=== PATIENT | female | born 1940 | race Caucasian/White ===

== ENCOUNTER → 2018-02-11 | Outpatient (CLI) | payer OTHER ==
[~2018-02-11] MED LIST: ACCUPRIL40 M1 PO; ACCUPRIL40 MG PO; ACETAMINOPHEN A PO; ALPRAZOLAM0.25 M2 PO; AMBIEN10 MG PO; ASPIRIN ADULT L81 M1 PO; ASPIRIN LOW STR81 M1 PO; ASPIRIN81 M1 PO; BUTRANS10 MCG/HR TD; CALCIUM LACTAT100 MG PO; CARDIZEM CD240 MG PO; CARTIA XT240 MG PO; CEFTIN500 MG PO; CIPRO500 MG PO; CIPROFLOXACIN750 MG PO; DILTIAZEM 24HR120 MG PO; DUONEB 3 MG/3 ML3 M1 NEB; DURICEF500 MG PO; Duragesic 25 M25 MCG TD; HUMALOG100 U/ML SC; HYDR25T PO; HYDROCHLOROTH12.5 M3 PO; HYDROCHLOROTH12.5 MG PO; IMDUR ER30 MG PO; IMDUR30 MG PO; ISOSORBIDE MONO30 MG PO; KEPPRA500 MG PO; LANTUS100 U/ML; LANTUS100 U/ML SC; LASIX20 MG PO; LIPITOR40 MG PO; LISINOPRIL AND1 TA1 PO; LISINOPRIL10 M1 PO; LISINOPRIL5 MG PO; LOPRESSOR25 MG PO; LOPRESSOR50 M1 PO; LOSARTAN POTASS25 M1 PO; MACRODANTIN100 M1 PO; METFORMIN1000 MG PO; METOPROLOL SR100 MG PO; METOPROLOL SUC100 M1 PO; METOPROLOL100 MG PO; MICROZIDE; MUSCLE RUB 10% TP; NEURONTIN100 MG PO; NIASPAN1000 MG PO; NIASPAN500 MG PO; NORCO 325 MG-51 TAB PO; NORCO 5-325 TA1 EACH PO; NOVOLIN R100 U/ML SC; NOVOLOG FL100 UNIT/1 SQ; OSCAL,OYSTER S500 MG PO; OYSTER SHELL1000 MG PO; PLAVIX75 M1 PO; PLAVIX75 MG PO; PRAVACHOL20 MG PO; PREDNISONE10 MG PO; PRINIVIL10 MG PO; PROAIR HFA0.09 MG/AC IH; PROTONIX40 MG PO; QUINAPRIL20 MG PO; QUINAPRIL40 MG PO; SIMVASTATIN20 MG PO; SYMBICORT1 AE1 IH; SYMBICORT1 AER INH; SYNTHROID,LEVO75 MCG PO; SYNTHROID0.075 MG PO; TOPROL XL100 MG PO; TOPROL XL200 MG PO; TOPROL XL50 M1 PO; TUBERSOL1 M1 IC; TUSSI-ORGANID3840 M1 PO; TYLENOL325 M1 PO; TYLENOL650 M1 PO; VIBRA-TAB100 M1 PO; VICODIN 5/500 505 MG PO; VITAMIN D10000 UNIT PO; VITAMIN D50000 I1 PO; VITAMIN D50000 I2 PO; Vicodin 5/325 PO; XANAX0.25 MG PO
--- NOTE | ~2018-02-11 | ST ---
[place], [place] EXERCISE STRESS TEST REPORT NAME: [facility]EN [id number] UNIT #: [id number] ROOM: DOCTOR: CHARITO SANFORD MD BIRTHDATE: [birth year] DOS: 02/11/2018 LEXISCAN STRESS EKG. REFERRING PHYSICIAN: Dr. Reece. INDICATION: Shortness of breath, history of coronary artery disease. FINDINGS: The patient underwent standard protocol Lexiscan stress EKG. The patient's baseline EKG showed normal sinus rhythm, nonspecific ST-T wave change. The patient's baseline heart rate was 90 with a blood pressure 148/76. The patient's peak heart rate was 120 with a blood pressure 180/78. The patient had no chest pain, no EKG changes, no arrhythmias noted. SUMMARY OF FINDINGS: Unremarkable Lexiscan stress EKG. Please see separate report for perfusion scan results. CHARITO SANFORD MD CM:STRESS:EXERCISE STRESS TEST REPORT [id number] CHARITO SANFORD MD
== END | disposition home or self-care (01) ==
LOC: CARD 02:54
DX: R06.02 Shortness of breath (principal); R06.09 Other forms of dyspnea; R53.81 Other malaise; Z95.1 Presence of aortocoronary bypass graft

== ENCOUNTER 2018-03-16 16:37 | Inpatient (IN) | payer OTHER ==
[~2018-03-16] VITALS: Ht 157.4 cm; Wt 76.9 kg
[2018-03-16 16:38] VITALS: BP 144/65
[2018-03-16 17:09] LABS: BILIRUBIN NEGATIVE (NEGATIVE); BLOOD NEGATIVE (NEGATIVE); CLARITY CLEAR (CLEAR); COLOR YELLOW (YELLOW); GLUCOSE NEGATIVE (NEGATIVE); KETONE NEGATIVE (NEGATIVE); LEUKO ESTERASE NEGATIVE (NEGATIVE); NITRITE NEGATIVE (NEGATIVE); PH 5.5 (5.0-9.0); UROBILINOGEN 0.2 E.U./dl (0.2-1.0)
[2018-03-16 17:15] LABS: HEMATOCRIT 40.8 % (37.0-47.0); HEMOGLOBIN 13.2 g/dl (12.0-16.0); MEAN CELL VOLUME 89.3 fl (81.0-99.0); MEAN CORPUSCULAR HGB 28.9 pg (27.0-31.0); MEAN CORPUSCULAR HGB CONC 32.4 g/dl (33.0-37.0); MEAN PLATELET VOLUME 9.1 fl (9.6-12.3); PLATELET COUNT AUTOMATED 319 10*3/uL (130-400); RED BLOOD COUNT 4.57 10*6/uL (4.10-5.10); RED CELL DISTRI WIDTH 13.2 % (0-14.5); WHITE BLOOD COUNT 23.9 10*3/uL (4.8-10.8)
[2018-03-16] MEDS ORDERED: INCRUSE ELLI62.5 MCG INH (17:15)
[2018-03-16] MEDS ORDERED: NOVOLOG10 ML SC (17:16)
[2018-03-16] MEDS ORDERED: MILK OF MA400 MG/51 PO (17:16)
[2018-03-16] MEDS ORDERED: STRESS FORMULA1 EAC4 PO (17:17)
[2018-03-16] MEDS ORDERED: VENTOLIN 02.5 MG/3 M INH (17:18)
[2018-03-16 17:19] LABS: BACTERIA 2+; MUCOUS TRACE; RBC 0-2 rbc/hpf (0-2); WBC 0-2 wbc/hpf (0-5)
[2018-03-16 17:29] LABS: ALBUMIN 3.5 gm/dl (3.1-4.5); CREATININE 1.22 mg/dL (0.55-1.02); POTASSIUM 3.9 mmol/L (3.5-5.1); TOTAL PROTEIN 7.5 gm/dL (6.4-8.2)
[2018-03-16 17:32] LABS: BASOPHILS 1 % (0-1); PLATELET SUFFICIENCY NORMAL (NORMAL); TOTAL CELLS COUNTED 100 #CELLS
[2018-03-16 18:08] VITALS: BP 138/70
[2018-03-16 20:14] VITALS: BP 121/68
[2018-03-16] MEDS ORDERED: BENADRYL ALLERG25 M5 PO (20:24)
[2018-03-16 20:25] VITALS: BP 111/64
[2018-03-16] MEDS ORDERED: BREO ELLIPTA 21 EACH INH (20:25)
[2018-03-16] MEDS ORDERED: DULCOLAX10 M1 R (20:26)
[2018-03-16] MEDS ORDERED: DUONEB 3 MG/3 ML3 M1 INH (20:27)
[2018-03-16] MEDS ORDERED: LANTUS SOL100 UNIT/1 SQ (20:29)
[2018-03-16] MEDS ORDERED: PROVENTIL HFA6.7 GM INH (20:32)
[2018-03-16] MEDS ORDERED: VITAMIN C500 M8 PO (20:32)
[2018-03-17] VITALS: BP 121/64
[2018-03-17 06:17] LABS: BASO # 0.1 10*3/uL (0.0-0.1); BASO % 0.3 % (0.0-1.0); EOS # 0.2 10*3/uL (0.0-0.4); EOS % 1.2 % (1.0-4.0); LYMPH # 1.6 10*3/uL (1.3-4.4); LYMPH % 8.5 % (27.0-41.0); MEAN CELL VOLUME 91.2 fl (81.0-99.0); MEAN CORPUSCULAR HGB CONC 31.8 g/dl (33.0-37.0); MEAN PLATELET VOLUME 9.5 fl (9.6-12.3); MONO # 1.4 10*3/uL (0.1-1.0); MONO % 7.5 % (3.0-9.0); NEUT # 15.8 10*3/uL (2.3-7.9); PLATELET COUNT AUTOMATED 261 10*3/uL (130-400); RED BLOOD COUNT 3.76 10*6/uL (4.10-5.10); RED CELL DISTRI WIDTH 13.2 % (0-14.5); WHITE BLOOD COUNT 19.2 10*3/uL (4.8-10.8)
[2018-03-17 06:27] LABS: HEMATOCRIT 34.3 % (37.0-47.0); HEMOGLOBIN 10.9 g/dl (12.0-16.0)
[2018-03-17 06:30] LABS: BUN 12 mg/dl (7-24); CHLORIDE 107 mmol/L (98-107); CHOLESTEROL 96 mg/dL (<200); CREATININE 0.89 mg/dL (0.55-1.02); PHOSPHOROUS 2.8 mg/dL (2.5-4.9); POTASSIUM 3.9 mmol/L (3.5-5.1); SODIUM 142 mmol/L (136-145); TRIGLYCERIDES 75 mg/dl (<150); VLDL CHOLESTEROL 15 mg/dL (6-40)
[2018-03-17 06:39] LABS: FREE T4 1.07 ng/dl (0.76-1.46); HDL CHOLESTEROL 59 mg/dl (40-60); LDL CHOLESTEROL 22 mg/dL (9-159); THYROID STIM HORMONE (HS) 0.178 uIU/ml (0.358-4.75)
[2018-03-17 07:21] LABS: VITAMIN D, 25-HYDROXY 34.8 ng/mL (30-100)
[2018-03-17 08:00] VITALS: BP 117/61
[2018-03-17 12:00] VITALS: BP 126/61
[2018-03-17 16:00] VITALS: BP 116/73
[2018-03-17 20:26] VITALS: BP 137/69
[2018-03-18 00:15] VITALS: BP 124/67
[2018-03-18 06:24] LABS: BASO # 0.1 10*3/uL (0.0-0.1); BASO % 0.5 % (0.0-1.0); EOS # 0.5 10*3/uL (0.0-0.4); EOS % 3.8 % (1.0-4.0); HEMATOCRIT 34.3 % (37.0-47.0); HEMOGLOBIN 11.1 g/dl (12.0-16.0); LYMPH # 2.4 10*3/uL (1.3-4.4); LYMPH % 19.9 % (27.0-41.0); MEAN CELL VOLUME 90.7 fl (81.0-99.0); MEAN CORPUSCULAR HGB 29.4 pg (27.0-31.0); MEAN CORPUSCULAR HGB CONC 32.4 g/dl (33.0-37.0); MEAN PLATELET VOLUME 9.4 fl (9.6-12.3); MONO # 1.1 10*3/uL (0.1-1.0); MONO % 9.1 % (3.0-9.0); NEUT % 66.2 % (47.0-73.0); PLATELET COUNT AUTOMATED 278 10*3/uL (130-400); RED BLOOD COUNT 3.78 10*6/uL (4.10-5.10); RED CELL DISTRI WIDTH 13.2 % (0-14.5); WHITE BLOOD COUNT 12.1 10*3/uL (4.8-10.8)
[2018-03-18 06:52] LABS: BUN 14 mg/dl (7-24); CHLORIDE 108 mmol/L (98-107); CREATININE 0.99 mg/dL (0.55-1.02); POTASSIUM 3.6 mmol/L (3.5-5.1); SODIUM 142 mmol/L (136-145)
[2018-03-18 08:00] VITALS: BP 137/66
[2018-03-18 12:00] VITALS: BP 152/67
[2018-03-18 16:00] VITALS: BP 151/66
[2018-03-18 20:00] VITALS: BP 135/87
[2018-03-19] VITALS: BP 144/67
[2018-03-19 06:35] LABS: BASO # 0.1 10*3/uL (0.0-0.1); BASO % 0.7 % (0.0-1.0); EOS # 0.6 10*3/uL (0.0-0.4); EOS % 5.7 % (1.0-4.0); HEMATOCRIT 34.9 % (37.0-47.0); HEMOGLOBIN 11.1 g/dl (12.0-16.0); LYMPH # 2.1 10*3/uL (1.3-4.4); LYMPH % 20.6 % (27.0-41.0); MEAN CELL VOLUME 89.9 fl (81.0-99.0); MEAN CORPUSCULAR HGB 28.6 pg (27.0-31.0); MEAN CORPUSCULAR HGB CONC 31.8 g/dl (33.0-37.0); MEAN PLATELET VOLUME 9.5 fl (9.6-12.3); MONO # 0.9 10*3/uL (0.1-1.0); MONO % 8.7 % (3.0-9.0); NEUT # 6.5 10*3/uL (2.3-7.9); NEUT % 63.9 % (47.0-73.0); PLATELET COUNT AUTOMATED 288 10*3/uL (130-400); RED BLOOD COUNT 3.88 10*6/uL (4.10-5.10); RED CELL DISTRI WIDTH 13.2 % (0-14.5); WHITE BLOOD COUNT 10.1 10*3/uL (4.8-10.8)
[2018-03-19 07:06] LABS: CREATININE 1.13 mg/dL (0.55-1.02); POTASSIUM 3.7 mmol/L (3.5-5.1)
[2018-03-19 08:00] VITALS: BP 133/80
[2018-03-19 12:00] VITALS: BP 135/52
[2018-03-19 16:00] VITALS: BP 130/74
[2018-03-19 20:00] VITALS: BP 139/68
[2018-03-20 06:33] LABS: BASO # 0.1 10*3/uL (0.0-0.1); BASO % 0.5 % (0.0-1.0); EOS # 0.4 10*3/uL (0.0-0.4); EOS % 3.7 % (1.0-4.0); HEMATOCRIT 33.8 % (37.0-47.0); HEMOGLOBIN 10.7 g/dl (12.0-16.0); LYMPH # 1.7 10*3/uL (1.3-4.4); MEAN CELL VOLUME 90.6 fl (81.0-99.0); MEAN CORPUSCULAR HGB 28.7 pg (27.0-31.0); MEAN CORPUSCULAR HGB CONC 31.7 g/dl (33.0-37.0); MEAN PLATELET VOLUME 9.3 fl (9.6-12.3); MONO # 0.8 10*3/uL (0.1-1.0); MONO % 6.9 % (3.0-9.0); NEUT # 8.5 10*3/uL (2.3-7.9); NEUT % 73.1 % (47.0-73.0); PLATELET COUNT AUTOMATED 296 10*3/uL (130-400); RED BLOOD COUNT 3.73 10*6/uL (4.10-5.10); RED CELL DISTRI WIDTH 13.2 % (0-14.5); WHITE BLOOD COUNT 11.6 10*3/uL (4.8-10.8)
[2018-03-20 06:59] LABS: BUN 15 mg/dl (7-24); CHLORIDE 107 mmol/L (98-107); CREATININE 0.99 mg/dL (0.55-1.02); POTASSIUM 3.6 mmol/L (3.5-5.1); SODIUM 144 mmol/L (136-145)
[2018-03-20 08:25] VITALS: BP 139/68
[2018-03-20 12:17] VITALS: BP 148/73
[2018-03-20 16:00] VITALS: BP 124/52
[2018-03-20 20:00] VITALS: BP 131/73
[2018-03-21] VITALS: BP 127/68
[2018-03-21 08:00] VITALS: BP 150/79
[2018-03-21 09:50] LABS: BASO # 0.1 10*3/uL (0.0-0.1); BASO % 0.7 % (0.0-1.0); EOS # 0.4 10*3/uL (0.0-0.4); EOS % 4.9 % (1.0-4.0); HEMOGLOBIN 11.8 g/dl (12.0-16.0); LYMPH # 2.1 10*3/uL (1.3-4.4); LYMPH % 23.1 % (27.0-41.0); MEAN CORPUSCULAR HGB 28.7 pg (27.0-31.0); MEAN CORPUSCULAR HGB CONC 31.9 g/dl (33.0-37.0); MEAN PLATELET VOLUME 9.1 fl (9.6-12.3); MONO # 0.8 10*3/uL (0.1-1.0); MONO % 9.1 % (3.0-9.0); NEUT # 5.6 10*3/uL (2.3-7.9); NEUT % 61.6 % (47.0-73.0); PLATELET COUNT AUTOMATED 331 10*3/uL (130-400); RED BLOOD COUNT 4.11 10*6/uL (4.10-5.10); RED CELL DISTRI WIDTH 13.4 % (0-14.5)
[2018-03-21 10:02] LABS: BUN 13 mg/dl (7-24); CHLORIDE 106 mmol/L (98-107); CREATININE 0.93 mg/dL (0.55-1.02); POTASSIUM 3.5 mmol/L (3.5-5.1); SODIUM 143 mmol/L (136-145)
[2018-03-21 12:00] VITALS: BP 121/66; BP 134/63
[2018-03-21 16:00] VITALS: BP 109/54
[2018-03-21 20:00] VITALS: BP 125/56
[2018-03-22 00:22] VITALS: BP 130/63
[2018-03-22 08:00] VITALS: BP 135/66
[2018-03-22] MEDS ORDERED: LEVAQUIN750 M1 PO (13:14)
[2018-03-22] MEDS ORDERED: KEPPRA500 MG PO (13:22)
== END 2018-03-22 15:22 | disposition other institution (70) | DRG 871 ==
LOC: ED 16:37 → 5E 18:29 → EDHOLD 18:29 → 5E 18:41
PROVIDERS: Family Medicine; Internal Medicine; Physician Assistant; Student in an Organized Health Care Education/Training Program
DX: A41.9 Sepsis, unspecified organism (principal); N17.0 Acute kidney failure with tubular necrosis; J18.9 Pneumonia, unspecified organism; N18.3 Chronic kidney disease, stage 3 (moderate); E11.22 Type 2 diabetes mellitus with diabetic chronic kidney disease; E11.65 Type 2 diabetes mellitus with hyperglycemia; G40.A09 Absence epileptic syndrome, not intractable, without status epilepticus; N39.0 Urinary tract infection, site not specified; E78.5 Hyperlipidemia, unspecified; I25.10 Atherosclerotic heart disease of native coronary artery without angina pectoris; I12.9 Hypertensive chronic kidney disease with stage 1 through stage 4 chronic kidney disease, or unspecified chronic kidney disease; Z66 Do not resuscitate; Z51.5 Encounter for palliative care; R26.2 Difficulty in walking, not elsewhere classified; M54.41 Lumbago with sciatica, right side; D72.810 Lymphocytopenia; J45.909 Unspecified asthma, uncomplicated; W18.39XA Other fall on same level, initial encounter; Y93.89 Activity, other specified; Y92.231 Patient bathroom in hospital as the place of occurrence of the external cause; Y99.8 Other external cause status; Z99.3 Dependence on wheelchair; Z79.4 Long term (current) use of insulin; Z79.899 Other long term (current) drug therapy; Z95.1 Presence of aortocoronary bypass graft; Z90.49 Acquired absence of other specified parts of digestive tract; Z86.73 Personal history of transient ischemic attack (TIA), and cerebral infarction without residual deficits; Z90.710 Acquired absence of both cervix and uterus; Z87.891 Personal history of nicotine dependence; Z98.1 Arthrodesis status; Z88.0 Allergy status to penicillin; Z88.2 Allergy status to sulfonamides; Z91.040 Latex allergy status; Z82.49 Family history of ischemic heart disease and other diseases of the circulatory system; Z80.8 Family history of malignant neoplasm of other organs or systems; Z83.3 Family history of diabetes mellitus

== ENCOUNTER 2018-04-05 16:06 | Emergency (ER) | payer OTHER ==
[~2018-04-05] VITALS: Wt 90.7 kg
[~2018-04-05 16:06] MED LIST changes: +BENADRYL ALLERG25 M5 PO; +BREO ELLIPTA 21 EACH INH; +DULCOLAX10 M1 R; +DUONEB 3 MG/3 ML3 M1 INH; +INCRUSE ELLI62.5 MCG INH; +LANTUS SOL100 UNIT/1 SQ; +LEVAQUIN750 M1 PO; +MILK OF MA400 MG/51 PO; +NOVOLOG10 ML SC; +PROVENTIL HFA6.7 GM INH; +STRESS FORMULA1 EAC4 PO; +VENTOLIN 02.5 MG/3 M INH; +VITAMIN C500 M8 PO
[2018-04-05 16:07] VITALS: BP 141/75
[2018-04-05 16:46] LABS: BASO # 0.1 10*3/uL (0.0-0.1); BASO % 0.9 % (0.0-1.0); EOS # 0.4 10*3/uL (0.0-0.4); HEMATOCRIT 36.5 % (37.0-47.0); HEMOGLOBIN 11.7 g/dl (12.0-16.0); LYMPH # 2.3 10*3/uL (1.3-4.4); LYMPH % 19.6 % (27.0-41.0); MEAN CELL VOLUME 88.6 fl (81.0-99.0); MEAN CORPUSCULAR HGB 28.4 pg (27.0-31.0); MEAN CORPUSCULAR HGB CONC 32.1 g/dl (33.0-37.0); MEAN PLATELET VOLUME 8.6 fl (9.6-12.3); MONO % 8.1 % (3.0-9.0); PLATELET COUNT AUTOMATED 392 10*3/uL (130-400); RED BLOOD COUNT 4.12 10*6/uL (4.10-5.10); RED CELL DISTRI WIDTH 13.3 % (0-14.5); WHITE BLOOD COUNT 11.7 10*3/uL (4.8-10.8)
[2018-04-05 16:47] LABS: BILIRUBIN NEGATIVE (NEGATIVE); BLOOD NEGATIVE (NEGATIVE); CLARITY CLEAR (CLEAR); COLOR YELLOW (YELLOW); GLUCOSE NEGATIVE (NEGATIVE); KETONE NEGATIVE (NEGATIVE); LEUKO ESTERASE NEGATIVE (NEGATIVE); NITRITE NEGATIVE (NEGATIVE); PH 5.5 (5.0-9.0); SPECIFIC GRAVITY <= 1.005 (1.005-1.030); UROBILINOGEN 0.2 E.U./dl (0.2-1.0)
[2018-04-05 17:07] LABS: CREATININE 1.07 mg/dL (0.55-1.02)
[2018-04-05 17:12] LABS: POTASSIUM 3.7 mmol/L (3.5-5.1)
[2018-04-05 17:32] LABS: BACTERIA TRACE; RBC 0-2 rbc/hpf (0-2); WBC 0-2 wbc/hpf (0-5)
== END 2018-04-05 18:50 ==
LOC: ED 16:06
PROVIDERS: Emergency Medicine
DX: G89.29 Other chronic pain (principal); I12.9 Hypertensive chronic kidney disease with stage 1 through stage 4 chronic kidney disease, or unspecified chronic kidney disease; E11.22 Type 2 diabetes mellitus with diabetic chronic kidney disease; N18.3 Chronic kidney disease, stage 3 (moderate); J45.909 Unspecified asthma, uncomplicated; E78.5 Hyperlipidemia, unspecified; Z98.890 Other specified postprocedural states; Z90.710 Acquired absence of both cervix and uterus; Z87.891 Personal history of nicotine dependence; Z95.1 Presence of aortocoronary bypass graft; Z79.899 Other long term (current) drug therapy; Z79.4 Long term (current) use of insulin; Z88.0 Allergy status to penicillin; Z88.2 Allergy status to sulfonamides; Z91.040 Latex allergy status

== ENCOUNTER 2018-04-19 16:36 | Inpatient (IN) | payer OTHER ==
[2018-04-19] VITALS (8 sets, daily range): BP systolic 142–167; BP diastolic 65–79
[~2018-04-19] VITALS: Ht 157.4 cm; Wt 70.0 kg
[2018-04-19 17:31] LABS: BASO # 0.1 10*3/uL (0.0-0.1); BASO % 0.5 % (0.0-1.0); EOS # 0.3 10*3/uL (0.0-0.4); HEMATOCRIT 40.6 % (37.0-47.0); HEMOGLOBIN 12.8 g/dl (12.0-16.0); LYMPH # 2.9 10*3/uL (1.3-4.4); LYMPH % 17.8 % (27.0-41.0); MEAN CELL VOLUME 89.4 fl (81.0-99.0); MEAN CORPUSCULAR HGB 28.2 pg (27.0-31.0); MEAN CORPUSCULAR HGB CONC 31.5 g/dl (33.0-37.0); MEAN PLATELET VOLUME 9.2 fl (9.6-12.3); MONO # 1.1 10*3/uL (0.1-1.0); NEUT # 11.6 10*3/uL (2.3-7.9); NEUT % 72.1 % (47.0-73.0); PLATELET COUNT AUTOMATED 315 10*3/uL (130-400); RED BLOOD COUNT 4.54 10*6/uL (4.10-5.10); RED CELL DISTRI WIDTH 13.2 % (0-14.5); WHITE BLOOD COUNT 16.2 10*3/uL (4.8-10.8)
[2018-04-19 17:39] LABS: ACT PARTIAL THROMBO TIME 25.6 SECONDS (20.8-31.5); INTERNATIONAL NORM RATIO 0.9 (2.0-3.5)
[2018-04-19 17:48] LABS: ALBUMIN 3.2 gm/dl (3.1-4.5); CREATININE 1.18 mg/dL (0.55-1.02); POTASSIUM 3.5 mmol/L (3.5-5.1); TOTAL PROTEIN 6.9 gm/dL (6.4-8.2); TROPONIN I 0.034 ng/ml (<0.045)
[2018-04-19 18:38] LABS: BILIRUBIN NEGATIVE (NEGATIVE); BLOOD 1+ (NEGATIVE); CLARITY CLOUDY (CLEAR); COLOR YELLOW (YELLOW); GLUCOSE NEGATIVE (NEGATIVE); KETONE NEGATIVE (NEGATIVE); LEUKO ESTERASE 3+ (NEGATIVE); NITRITE NEGATIVE (NEGATIVE); UROBILINOGEN 0.2 E.U./dl (0.2-1.0)
[2018-04-19 18:42] LABS: BACTERIA 1+; WBC TNTC wbc/hpf (0-5)
[2018-04-19] MEDS ORDERED: DUONEB 3 MG/3 ML3 M1 INH (21:03)
[2018-04-19] MEDS ORDERED: GLUCAGON EMERGEN1 M1 IJ (21:10)
[2018-04-19] MEDS ORDERED: GLUCOSE33 GM PO (21:12)
[2018-04-19] MEDS ORDERED: LANTUS SOL100 UNIT/1 SQ (21:15)
[2018-04-19] MEDS ORDERED: LOSARTAN POTASS50 M1 PO (21:18)
[2018-04-19] MEDS ORDERED: HYDROCODONE-AC1 EAC1 PO (21:20)
[2018-04-19] MEDS ORDERED: PREDNISONE10 MG PO (21:28)
[2018-04-20] VITALS: BP 150/65
[2018-04-20 06:38] LABS: BUN 16 mg/dl (7-24); CREATININE 0.93 mg/dL (0.55-1.02); PHOSPHOROUS 2.6 mg/dL (2.5-4.9); SGOT/AST 16 IU/L (3-35); SGPT/ALT 29 U/L (12-78)
[2018-04-20 06:40] LABS: ALKALINE PHOSPHATASE 194 U/L (45-117); BASO % 0.3 % (0.0-1.0); EOS % 0.1 % (1.0-4.0); HEMATOCRIT 41.6 % (37.0-47.0); HEMOGLOBIN 13.1 g/dl (12.0-16.0); LYMPH # 1.1 10*3/uL (1.3-4.4); LYMPH % 9.5 % (27.0-41.0); MEAN CELL VOLUME 87.9 fl (81.0-99.0); MEAN CORPUSCULAR HGB 27.7 pg (27.0-31.0); MEAN CORPUSCULAR HGB CONC 31.5 g/dl (33.0-37.0); MEAN PLATELET VOLUME 9.4 fl (9.6-12.3); MONO # 0.2 10*3/uL (0.1-1.0); MONO % 1.4 % (3.0-9.0); NEUT % 88.2 % (47.0-73.0); PLATELET COUNT AUTOMATED 324 10*3/uL (130-400); RED BLOOD COUNT 4.73 10*6/uL (4.10-5.10); TOTAL PROTEIN 6.8 gm/dL (6.4-8.2); WHITE BLOOD COUNT 11.3 10*3/uL (4.8-10.8)
[2018-04-20 06:45] LABS: CHLORIDE 109 mmol/L (98-107); POTASSIUM 3.9 mmol/L (3.5-5.1); SODIUM 141 mmol/L (136-145)
[2018-04-20 06:48] LABS: THYROID STIM HORMONE (HS) 0.484 uIU/ml (0.358-4.75)
[2018-04-20 08:00] VITALS: BP 157/78
[2018-04-20 12:00] VITALS: BP 153/79
[2018-04-20 16:00] VITALS: BP 126/61
[2018-04-20 20:00] VITALS: BP 143/67
[2018-04-21] VITALS: BP 142/67
[2018-04-21 07:12] LABS: BASO # 0.1 10*3/uL (0.0-0.1); BASO % 0.5 % (0.0-1.0); EOS # 0.5 10*3/uL (0.0-0.4); EOS % 4.2 % (1.0-4.0); HEMATOCRIT 38.3 % (37.0-47.0); HEMOGLOBIN 12.1 g/dl (12.0-16.0); LYMPH # 2.7 10*3/uL (1.3-4.4); LYMPH % 24.8 % (27.0-41.0); MEAN CELL VOLUME 88.5 fl (81.0-99.0); MEAN CORPUSCULAR HGB 27.9 pg (27.0-31.0); MEAN CORPUSCULAR HGB CONC 31.6 g/dl (33.0-37.0); MEAN PLATELET VOLUME 9.4 fl (9.6-12.3); MONO # 0.7 10*3/uL (0.1-1.0); MONO % 6.5 % (3.0-9.0); NEUT % 63.4 % (47.0-73.0); PLATELET COUNT AUTOMATED 312 10*3/uL (130-400); RED BLOOD COUNT 4.33 10*6/uL (4.10-5.10); RED CELL DISTRI WIDTH 13.2 % (0-14.5); WHITE BLOOD COUNT 11.1 10*3/uL (4.8-10.8)
[2018-04-21 07:20] LABS: BUN 14 mg/dl (7-24); CHLORIDE 107 mmol/L (98-107); CREATININE 0.95 mg/dL (0.55-1.02); SODIUM 144 mmol/L (136-145)
[2018-04-21 08:00] VITALS: BP 135/65
[2018-04-21 12:00] VITALS: BP 143/67
[2018-04-21 16:00] VITALS: BP 120/53
[2018-04-21 20:00] VITALS: BP 120/53
[2018-04-22] VITALS: BP 146/76
[2018-04-22 07:23] LABS: BASO # 0.1 10*3/uL (0.0-0.1); BASO % 0.4 % (0.0-1.0); EOS # 0.2 10*3/uL (0.0-0.4); EOS % 1.6 % (1.0-4.0); HEMATOCRIT 42.7 % (37.0-47.0); HEMOGLOBIN 13.2 g/dl (12.0-16.0); LYMPH # 2.1 10*3/uL (1.3-4.4); LYMPH % 14.3 % (27.0-41.0); MEAN CORPUSCULAR HGB 28.3 pg (27.0-31.0); MEAN CORPUSCULAR HGB CONC 30.9 g/dl (33.0-37.0); MEAN PLATELET VOLUME 9.6 fl (9.6-12.3); MONO % 6.8 % (3.0-9.0); PLATELET COUNT AUTOMATED 309 10*3/uL (130-400); RED BLOOD COUNT 4.66 10*6/uL (4.10-5.10); RED CELL DISTRI WIDTH 13.6 % (0-14.5); WHITE BLOOD COUNT 14.4 10*3/uL (4.8-10.8)
[2018-04-22 07:25] LABS: MEAN CELL VOLUME 91.5 fl (81.0-99.0)
[2018-04-22 07:48] LABS: BUN 12 mg/dl (7-24); CHLORIDE 105 mmol/L (98-107); CREATININE 1.01 mg/dL (0.55-1.02); POTASSIUM 3.6 mmol/L (3.5-5.1); SODIUM 142 mmol/L (136-145)
[2018-04-22 08:00] VITALS: BP 143/73
[2018-04-22 12:00] VITALS: BP 94/73
[2018-04-22] MEDS ORDERED: KEFLEX500 M1 PO (12:27)
[2018-04-22] MEDS ORDERED: HYDROCODONE-AC1 EAC1 PO (12:27)
[2018-04-22] MEDS ORDERED: Duragesic 25 M25 MCG TD (12:27)
[2018-04-22] MEDS ORDERED: DILTIAZEM HYDR180 M2 PO (12:27)
[2018-04-22] MEDS ORDERED: Lantus SC ×2 (12:27)
[2018-04-22] MEDS ORDERED: ALPRAZOLAM0.25 M2 PO (12:27)
[2018-04-22] MEDS ORDERED: VITAMIN D-32000 UNIT PO (12:27)
== END 2018-04-22 14:05 | disposition other institution (70) | DRG 689 ==
LOC: ED 16:36 → 5E 19:10 → EDHOLD 19:10 → 5E 19:52
PROVIDERS: Emergency Medicine; Family Medicine; Internal Medicine Hospice and Palliative Medicine
DX: N39.0 Urinary tract infection, site not specified (principal); G93.41 Metabolic encephalopathy; E87.2 Acidosis; E11.42 Type 2 diabetes mellitus with diabetic polyneuropathy; E11.22 Type 2 diabetes mellitus with diabetic chronic kidney disease; E44.1 Mild protein-calorie malnutrition; Z66 Do not resuscitate; Z51.5 Encounter for palliative care; B96.4 Proteus (mirabilis) (morganii) as the cause of diseases classified elsewhere; E11.65 Type 2 diabetes mellitus with hyperglycemia; E86.0 Dehydration; Z79.4 Long term (current) use of insulin; N18.3 Chronic kidney disease, stage 3 (moderate); E78.5 Hyperlipidemia, unspecified; I12.9 Hypertensive chronic kidney disease with stage 1 through stage 4 chronic kidney disease, or unspecified chronic kidney disease; Z96.642 Presence of left artificial hip joint; I25.10 Atherosclerotic heart disease of native coronary artery without angina pectoris; L80 Vitiligo; J45.20 Mild intermittent asthma, uncomplicated; M54.42 Lumbago with sciatica, left side; M54.41 Lumbago with sciatica, right side; G40.909 Epilepsy, unspecified, not intractable, without status epilepticus; E55.9 Vitamin D deficiency, unspecified; F41.1 Generalized anxiety disorder; Z88.0 Allergy status to penicillin; Z88.2 Allergy status to sulfonamides; Z91.040 Latex allergy status; Z79.899 Other long term (current) drug therapy; Z86.73 Personal history of transient ischemic attack (TIA), and cerebral infarction without residual deficits; Z90.710 Acquired absence of both cervix and uterus; Z95.1 Presence of aortocoronary bypass graft; Z83.3 Family history of diabetes mellitus; Z82.49 Family history of ischemic heart disease and other diseases of the circulatory system; Z80.9 Family history of malignant neoplasm, unspecified; Z68.28 Body mass index [BMI] 28.0-28.9, adult

== ENCOUNTER 2018-06-22 09:38 | Inpatient (IN) | payer OTHER ==
[~2018-06-22] VITALS: Ht 157.5 cm; Wt 63.5 kg
--- NOTE | ~2018-06-22 | PR ---
[place], [place] PROGRESS NOTE NAME: HERIBERTO CHRISTENSEN UNIT #: [id number] ROOM: 409 DOCTOR: DENNIS SRIVASTAVA MD,JORGE BIRTHDATE: [birth year] DOS: 06/27/2018 SUBJECTIVE: She was noted n.p.o. for bronchoscopy. The patient has been comfortably resting on the bed. Denies symptoms of chest pain. She continued symptoms of cough, which were noted severe and remains nonproductive. Symptoms of chest pain. Denies symptoms of hemoptysis. The patient denies edema or pain in lower extremity. Denies symptoms of headache. Remaining systems were reviewed. They were noted all negative. She was n.p.o. past midnight and bronchoscopy that was planned to be done today. OBJECTIVE: VITAL SIGNS: Which has been recorded shows normal temperature, respiratory rate 20, heart rate 89, blood pressure 165/80, 152/100. Pulse oxygen saturation of the patient recorded as 97% at rest on room air. HEENT: Examination shows head was atraumatic. Eyes nonicterus. NECK: Supple. CARDIOVASCULAR: S1, S2 is audible. LUNGS: The patient was noted with decreased breath sounds in the lungs bilaterally with expiratory wheezing. ABDOMEN: Soft, nontender. Bowel sounds present. EXTREMITIES patient was noted without any edema. MUSCULOSKELETAL: Noted without any acute deformities. CENTRAL NERVOUS SYSTEM: The patient's cranial nerves 2-12 intact. SKIN: Visible skin without lesions or rashes. LABORATORY DATA: BMP this morning, glucose 120, BUN and creatinine were normal. PT and PTT yesterday and platelet function assay was completed yesterday and was noted as normal. IMPRESSION: 1. The patient with ongoing acute exacerbation of bronchial asthma and possible COPD disease and acute bronchitis, persistent respiratory symptoms, not resolving. 2. The patient with maximum medical therapy at the present time. The patient was also continued. PLAN OF MANAGEMENT: Procedure is fibrobronchoscopy is planned for this patient to be done today. After bronchoscopy any modification treatment, needed will be done accordingly. The dose of corticosteroids will be gradually reduced. Supportive care, other therapy, plan of management and other care plan and treatments. [place], [place] PROGRESS NOTE NAME: HERIBERTO CHRISTENSEN UNIT #: [id number] ROOM: 409 DOCTOR: JORGE ALFORD MD BIRTHDATE: [birth year] JORGE COLLINS MD CM:PNTRANS [id number] JORGE SRIVASTAVA MD 07/04/18 0934 interface
--- NOTE | ~2018-06-22 | CON ---
[place], [place] REPORT OF CONSULTATION NAME: HERIBERTO CHRISTENSEN UNIT #: [id number] ROOM: 409 DOCTOR: DENNIS SRIVASTAVA MDJORGE BIRTHDATE: [birth year] DOS: 06/26/2018 REASON FOR CONSULTATION: Consultation requested by the hospitalist service for nonresolving COPD. HISTORY OF PRESENT ILLNESS: A 77-year-old female with past history of COPD. The patient currently is a resident of a nursing facility. The patient has been brought to the hospital. The patient has been noted with symptoms of general weakness, fatigue with increased cough and chest congestion with wheezing as well. She has been also reported with symptoms of some confusion as well. She stays at the [facility]. She has been brought to the hospital for further medical management. REVIEW OF SYSTEMS: Reviewed as follows: CONSTITUTIONAL: The patient fatigued and tired reported. EYES: Denies burning, redness, or tenderness. EARS, NOSE, AND THROAT: Denies sore throat, hoarseness, otalgia, postnasal drainage. CARDIOVASCULAR: Denies angina pain, edema of the lower extremities. GASTROINTESTINAL: No dysphagia, nausea, vomiting, diarrhea, abdominal pain, hematemesis, melena, or hematochezia. GENITOURINARY: Dysuria, suprapubic pain, or hematuria. MUSCULOSKELETAL: No acute joint pain, redness, tenderness. CENTRAL NERVOUS SYSTEM: The inability to walk from past hip surgery, at this time with decreased mobility. SKIN: No abnormal lesions or rashes. Remaining systems were reviewed. They were noted all negative. PAST MEDICAL HISTORY: 1. Longstanding bronchial asthma, severity unknown. 2. History of absence seizures. 3. General anxiety disorder. 4. Chronic kidney disease, stage 3. 5. Past history of stroke. 6. Hyperlipidemia. 7. Essential hypertension. 8. Peripheral neuropathy. 9. Type 2 diabetes mellitus. 10. The patient also had a history of hypothyroidism. PAST SURGICAL HISTORY: 1. Carotid endarterectomy. 2. Colectomy noncancerous. 3. Knee surgery. 4. Hysterectomy. 5. Arthroplasty of the left hip. 6. Breast biopsy, which was benign. 7. Coronary artery bypass grafting. [place], [place] REPORT OF CONSULTATION NAME: HERIBERTO CHRISTENSEN UNIT #: [id number] ROOM: [facility] DOCTOR: DENNIS SRIVASTAVA MD,JORGE BIRTHDATE: [birth year] SOCIAL HISTORY: The patient is currently , lives at home, has 5 children. Tobacco use was noted as teenager and smoked a pack of cigarettes per day until 40 years ago. FAMILY HISTORY: The patient's father of cancer. Mother from unknown medical illnesses. MEDICATIONS: At nursing facility noted use of Proventil HFA, Xanax, vitamin C, Lipitor, vitamin D, Plavix, Benadryl, fentanyl, Flonase, Breo Ellipta, Lasix, sliding insulin coverage, Keppra, loratadine, levothyroxine, multivitamin, Incruse Ellipta. DRUG ALLERGY HISTORY: The patient noted allergies: 1. PENICILLIN. 2. SULFA DRUGS. PHYSICAL EXAMINATION: GENERAL: A 77-year-old female patient currently sitting on the chair without any acute distress. Height of 5 feet 2 inches, weight 140 pounds, BMI 25. VITAL SIGNS: Showed normal temperature, respiratory rate of 18-20, heart rate of 94, blood pressure is 145/70 to 154/78. Pulse oxygen saturation on room air 99% saturation. HEENT: Head was atraumatic. Eyes nonicterus. NECK: Supple. CARDIOVASCULAR: S1, S2 audible. LUNGS: Noted with decreased breath sounds in the lungs were noted bilaterally. Expiratory wheezing. There were no crackles. ABDOMEN: Flat, soft, nontender. EXTREMITIES: Without edema with skin lesions or rashes. CENTRAL NERVOUS SYSTEM: Nonfocal. MUSCULOSKELETAL: No acute deformities. LABORATORY DATA: CBC done this patient on 06/22/2018 on admission, WBC 12.2, remaining CBC normal. PT/PTT on 06/22/2018 normal. Lactic acid 2.2 on admission. CMP of the patient 81, BUN 21, creatinine 1.39, glucose 241, potassium 3.4 on admission. The BMP of patient this morning, glucose 247, BUN and creatinine were normal, potassium 3.3. CBC of the patient WBC count 13.0, hemoglobin 10.6, hematocrit 33.0. Platelet count normal. Blood cultures, no bacterial growth was noted. Review of the radiology data pertinent. Chest x-ray was done on admission one view, in the Emergency 06/22/2018, the patient noted changes of hyperinflation. There were no acute pulmonary infiltration. IMPRESSION: The patient was currently admitted to the hospital noted with acute onset of exacerbation of bronchial asthma, possible COPD combination patient with acute bronchitis, started with upper respiratory tract infection, now resolving. Persistent symptoms of coughing, wheezing noted, not responding to treatment for the past 4 days of treatment with corticosteroids, bronchodilators, and other medications. PLAN OF MANAGEMENT: The patient dose of Solu-Medrol will be decreased to 40 mg [place], [place] REPORT OF CONSULTATION NAME: HERIBERTO CHRISTENSEN UNIT #: [id number] ROOM: 409 DOCTOR: JORGE ALFORD MD BIRTHDATE: [birth year] t.i.d. from 60 mg t.i.d. since remains on same corticosteroids without any further changes. Therapeutic bronchoscopy was considered plan to be done tomorrow morning after description of the risk and benefits, the patient accepted the procedure. N.p.o. past midnight status will be achieved. Continue on previous therapy without any additional change in treatment will be recommended at this time. Usual care. Any changes further in the treatment if necessary will be ordered accordingly. All other treatment changes to be made as well as the patient's illness progresses. Thanks for allowing me to participate in the care of this patient. JORGE COLLINS MD CM:CONSTR:REPORT OF CONSULTATION 1730 07/04/18 0935 interface
--- NOTE | ~2018-06-22 | EKG ---
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
--- NOTE | ~2018-06-22 | PROC NOTE ---
[place], [place] PROCEDURE NOTE NAME: HERIBERTO CHRISTENSEN UNIT #: [id number] ROOM: 409 DOCTOR: DENNIS SRIVASTAVA MD,JORGE BIRTHDATE: [birth year] DOS: 06/27/2018 PREOPERATIVE DIAGNOSES: Severe nonresolving cough with active wheezing. POSTOPERATIVE DIAGNOSES: Impaction of the mucus was removed from the endobronchial tree subsegments bilaterally. FINDINGS: Acute tracheobronchitis. COMPLICATIONS: None. PROCEDURE DESCRIPTION: Informed consent obtained. She was brought to the OR and placed in supine position. Conscious sedation administered by the Anesthesia Department. After achieving proper sedation, airway introduced into the mouth. Bronchoscope advanced into the airway into laryngeal area. Epiglottis and vocal cords were seen. Vocal cord was moving symmetrically with movements. Bronchoscope advanced to the vocal into tracheal lumen. Tracheal lumen noted with moderate amount of thick mucus secretion with purulent secretion mixture suctioned out the krystal level. Inflammatory changes were noted. Krystal noted sharp. The right upper, right middle, right lower, left upper, lingular lobe bronchi were all examined. Similar secretion present as in the trachea in the bronchus subsegment with partial impaction of secretions that cannot get normal saline wash, sent for culture. Procedure was tolerated by the patient. Postoperative finding will be discussed after the patient recovered the effects of acute sedation. At this time, no change in treatment will be needed. JORGE COLLINS MD CM:PROCNOTE:PROCEDURE NOTE [id number] [id number] JORGE SRIVASTAVA MD
--- NOTE | ~2018-06-22 | PR ---
[place], [place] PROGRESS NOTE NAME: HERIBERTO CHRISTENSEN UNIT #: [id number] ROOM: 409 DOCTOR: DENNIS SRIVASTAVA MD,JORGE BIRTHDATE: [birth year] DOS: 06/28/2018 SUBJECTIVE: She has been noted comfortable at this time. Bronchoscopy completed yesterday with reduction of respiratory symptoms, especially the cough. The coughing has been improving significantly. Denies symptoms of chest pain. The wheezing and shortness of breath has been decreased. OBJECTIVE: VITAL SIGNS: Which were recorded showed normal temperature, respiratory rate 20, heart rate 94, blood pressure 170/88 and 135/67. The pulse oxygen saturation on room air 95% saturation. HEENT: Examination shows head was atraumatic. Eyes nonicterus. NECK: Supple. CARDIOVASCULAR: S1, S2 audible. LUNGS: Expiratory wheezing, no crackles. ABDOMEN: Soft, nontender. EXTREMITIES: Without acute edema. LABORATORY DATA: Gram stain of the bronchial washing yesterday, few white blood cells, moderate epithelial cell, few gram-positive cocci in clusters. Sputum noted moderate growth of gram-positive cocci, pending identification and sensitivities. IMPRESSION: Acute tracheobronchitis was noted at present time with ongoing acute exacerbation of bronchial asthma, possible chronic obstructive pulmonary disease as well. PLAN OF MANAGEMENT: Monitor culture results. Continuation of the bronchodilators with oxygen supplementation. Decrease Solu-Medrol to daily dosing today. Antibiotic adjustment. Discharge planning for the patient after the culture results availability for tomorrow. JORGE COLLINS MD CM:PNTRANS [id number] JORGE SRIVASTAVA MD 06/28/18 1355 interface
--- NOTE | ~2018-06-22 | EKG ---
[place], [place] ELECTROCARDIOGRAM REPORT NAME: HERIBERTO CHRISTENSEN UNIT #: [id number] ROOM: 406 DOCTOR: EBEN DRAFT REPORT BIRTHDATE: [birth year] 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
[~2018-06-22 09:38] MED LIST changes: +DILTIAZEM HYDR180 M2 PO; +GLUCAGON EMERGEN1 M1 IJ; +GLUCOSE33 GM PO; +HYDROCODONE-AC1 EAC1 PO; +KEFLEX500 M1 PO; +LOSARTAN POTASS50 M1 PO; +Lantus SC; +VITAMIN D-32000 UNIT PO
[2018-06-22 09:42] VITALS: BP 125/73
[2018-06-22 09:58] VITALS: BP 125/73
[2018-06-22 10:14] LABS: BASO # 0.1 10*3/uL (0.0-0.1); BASO % 0.8 % (0.0-1.0); EOS # 0.5 10*3/uL (0.0-0.4); EOS % 3.9 % (1.0-4.0); HEMOGLOBIN 13.9 g/dl (12.0-16.0); LYMPH # 2.1 10*3/uL (1.3-4.4); LYMPH % 17.6 % (27.0-41.0); MEAN CELL VOLUME 88.7 fl (81.0-99.0); MEAN CORPUSCULAR HGB 28.7 pg (27.0-31.0); MEAN CORPUSCULAR HGB CONC 32.3 g/dl (33.0-37.0); MONO # 0.7 10*3/uL (0.1-1.0); MONO % 6.1 % (3.0-9.0); NEUT # 8.7 10*3/uL (2.3-7.9); NEUT % 71.2 % (47.0-73.0); PLATELET COUNT AUTOMATED 315 10*3/uL (130-400); RED BLOOD COUNT 4.85 10*6/uL (4.10-5.10); RED CELL DISTRI WIDTH 13.2 % (0-14.5); WHITE BLOOD COUNT 12.2 10*3/uL (4.8-10.8)
[2018-06-22 10:23] LABS: ACT PARTIAL THROMBO TIME 30.8 SECONDS (20.8-31.5)
[2018-06-22 10:30] LABS: ALBUMIN 3.3 gm/dl (3.1-4.5); CREATININE 1.39 mg/dL (0.55-1.02); POTASSIUM 3.4 mmol/L (3.5-5.1); TOTAL PROTEIN 7.3 gm/dL (6.4-8.2); TROPONIN I 0.033 ng/ml (<0.045)
[2018-06-22 11:46] VITALS: BP 111/75
[2018-06-22] MEDS ORDERED: BREO ELLIPTA 21 EACH INH (13:01)
[2018-06-22] MEDS ORDERED: CLARITIN10 MG PO (13:03)
[2018-06-22] MEDS ORDERED: FLONASE ALLERG9.9 ML NAS (13:08)
[2018-06-22] MEDS ORDERED: GLUTOSE 1537.5 GM PO (13:10)
[2018-06-22] MEDS ORDERED: LANTUS SOL100 UNIT/1 SQ (13:13)
[2018-06-22] MEDS ORDERED: LASIX20 MG PO (13:14)
[2018-06-22] MEDS ORDERED: VITAMIN D10000 UNIT PO (13:19)
[2018-06-22 16:00] VITALS: BP 118/98
[2018-06-22 18:48] VITALS: BP 112/62
[2018-06-22 20:00] VITALS: BP 145/62
[2018-06-23] VITALS: BP 134/64
[2018-06-23 06:51] LABS: MEAN CORPUSCULAR HGB 28.6 pg (27.0-31.0); MEAN CORPUSCULAR HGB CONC 32.5 g/dl (33.0-37.0); MEAN PLATELET VOLUME 9.2 fl (9.6-12.3); PLATELET COUNT AUTOMATED 276 10*3/uL (130-400); RED BLOOD COUNT 3.99 10*6/uL (4.10-5.10); RED CELL DISTRI WIDTH 13.4 % (0-14.5); WHITE BLOOD COUNT 11.7 10*3/uL (4.8-10.8)
[2018-06-23 06:53] LABS: HEMATOCRIT 35.1 % (37.0-47.0); HEMOGLOBIN 11.4 g/dl (12.0-16.0)
[2018-06-23 06:57] LABS: ACT PARTIAL THROMBO TIME 29.6 SECONDS (20.8-31.5)
[2018-06-23 07:05] LABS: CREATININE 1.11 mg/dL (0.55-1.02); FREE T4 1.37 ng/dl (0.76-1.46); PHOSPHOROUS 2.8 mg/dL (2.5-4.9); POTASSIUM 3.3 mmol/L (3.5-5.1); TOTAL PROTEIN 6.3 gm/dL (6.4-8.2)
[2018-06-23 07:10] LABS: THYROID STIM HORMONE (HS) 0.169 uIU/ml (0.358-4.75)
[2018-06-23 07:17] LABS: BURR CELLS FEW; PLATELET SUFFICIENCY NORMAL (NORMAL); TOTAL CELLS COUNTED 100 #CELLS
[2018-06-23 07:51] LABS: VITAMIN D, 25-HYDROXY 51.7 ng/mL (30-100)
[2018-06-23 08:00] VITALS: BP 142/67
[2018-06-23 12:00] VITALS: BP 128/73
[2018-06-23 16:00] VITALS: BP 123/63
[2018-06-23 20:00] VITALS: BP 129/63
[2018-06-24] VITALS: BP 136/90
[2018-06-24 08:00] VITALS: BP 121/66
[2018-06-24 12:00] VITALS: BP 139/61
[2018-06-24 16:00] VITALS: BP 139/76
[2018-06-24 20:00] VITALS: BP 149/80
[2018-06-25] VITALS: BP 153/81
[2018-06-25 07:13] LABS: HEMOGLOBIN 10.7 g/dl (12.0-16.0); MEAN CELL VOLUME 89.7 fl (81.0-99.0); MEAN CORPUSCULAR HGB 28.2 pg (27.0-31.0); MEAN CORPUSCULAR HGB CONC 31.5 g/dl (33.0-37.0); MEAN PLATELET VOLUME 9.5 fl (9.6-12.3); PLATELET COUNT AUTOMATED 264 10*3/uL (130-400); RED BLOOD COUNT 3.79 10*6/uL (4.10-5.10); WHITE BLOOD COUNT 15.4 10*3/uL (4.8-10.8)
[2018-06-25 07:43] LABS: PLATELET SUFFICIENCY NORMAL (NORMAL); TOTAL CELLS COUNTED 100 #CELLS
[2018-06-25 07:44] LABS: BURR CELLS FEW
[2018-06-25 07:48] LABS: BUN 19 mg/dl (7-24); CHLORIDE 112 mmol/L (98-107); POTASSIUM 3.6 mmol/L (3.5-5.1); SODIUM 144 mmol/L (136-145)
[2018-06-25 08:00] VITALS: BP 158/62
[2018-06-25 12:00] VITALS: BP 144/64
[2018-06-25 16:00] VITALS: BP 90/65
[2018-06-25 20:00] VITALS: BP 137/76
[2018-06-26] VITALS: BP 132/61
[2018-06-26 06:06] LABS: BASO % 0.1 % (0.0-1.0); HEMOGLOBIN 10.6 g/dl (12.0-16.0); LYMPH % 7.8 % (27.0-41.0); MEAN CELL VOLUME 87.5 fl (81.0-99.0); MEAN CORPUSCULAR HGB 28.1 pg (27.0-31.0); MEAN CORPUSCULAR HGB CONC 32.1 g/dl (33.0-37.0); MEAN PLATELET VOLUME 9.7 fl (9.6-12.3); MONO # 0.4 10*3/uL (0.1-1.0); MONO % 3.2 % (3.0-9.0); NEUT # 11.4 10*3/uL (2.3-7.9); NEUT % 87.9 % (47.0-73.0); PLATELET COUNT AUTOMATED 245 10*3/uL (130-400); RED BLOOD COUNT 3.77 10*6/uL (4.10-5.10); RED CELL DISTRI WIDTH 13.9 % (0-14.5)
[2018-06-26 06:28] LABS: BUN 16 mg/dl (7-24); CHLORIDE 111 mmol/L (98-107); CREATININE 0.83 mg/dL (0.55-1.02); POTASSIUM 3.3 mmol/L (3.5-5.1); SODIUM 145 mmol/L (136-145)
[2018-06-26 08:00] VITALS: BP 165/90
[2018-06-26 12:00] VITALS: BP 145/70
[2018-06-26 15:08] LABS: ACT PARTIAL THROMBO TIME 26.5 SECONDS (20.8-31.5)
[2018-06-26 16:00] VITALS: BP 158/78
[2018-06-26 20:00] VITALS: BP 158/72
[2018-06-27] VITALS (9 sets, daily range): BP systolic 144–165; BP diastolic 61–100
[2018-06-27 07:16] LABS: BUN 18 mg/dl (7-24); CHLORIDE 110 mmol/L (98-107); CREATININE 0.82 mg/dL (0.55-1.02); POTASSIUM 3.8 mmol/L (3.5-5.1); SODIUM 145 mmol/L (136-145)
[2018-06-28] VITALS: BP 135/67
[2018-06-28 08:00] VITALS: BP 170/88
[2018-06-28 12:00] VITALS: BP 151/76
[2018-06-28] MEDS ORDERED: Duragesic 25 M25 MCG TD (12:55)
[2018-06-28] MEDS ORDERED: PREDNISONE10 MG PO (12:55)
[2018-06-28] MEDS ORDERED: DOXYCYCLINE100 M3 PO (12:55)
[2018-06-28] MEDS ORDERED: LANTUS SOL100 UNIT/1 SQ (12:55)
[2018-06-28] MEDS ORDERED: HYDROCODONE-AC1 EAC1 PO (12:55)
[2018-06-28] MEDS ORDERED: SERTRALINE HYDR25 MG PO (12:55)
[2018-06-28] MEDS ORDERED: ALPRAZOLAM0.25 M2 PO (12:55)
[2018-06-28] MEDS ORDERED: VITAMIN D5000 UNI1 PO (12:55)
[2018-06-28 15:10] LABS: ACID FAST SPEC PROCESSING Concentration (.)
== END 2018-06-28 16:04 | disposition other institution (70) | DRG 871 ==
LOC: ED 09:38 → EDHOLD 11:21 → 4E 11:21
PROVIDERS: Emergency Medicine; Internal Medicine; Internal Medicine Critical Care Medicine
PROC: 0BC78ZZ Extirpation of Matter from Left Main Bronchus, Via Natural or Artificial Opening Endoscopic (ICD-10-PCS; principal; 2018-06-27)
PROC: 0BC58ZZ Extirpation of Matter from Right Middle Lobe Bronchus, Via Natural or Artificial Opening Endoscopic (ICD-10-PCS; principal; 2018-06-27)
PROC: 0BCB8ZZ Extirpation of Matter from Left Lower Lobe Bronchus, Via Natural or Artificial Opening Endoscopic (ICD-10-PCS; principal; 2018-06-27)
PROC: 0BC18ZZ Extirpation of Matter from Trachea, Via Natural or Artificial Opening Endoscopic (ICD-10-PCS; principal; 2018-06-27)
PROC: 0BC98ZZ Extirpation of Matter from Lingula Bronchus, Via Natural or Artificial Opening Endoscopic (ICD-10-PCS; principal; 2018-06-27)
PROC: 0BC88ZZ Extirpation of Matter from Left Upper Lobe Bronchus, Via Natural or Artificial Opening Endoscopic (ICD-10-PCS; principal; 2018-06-27)
PROC: 0BC38ZZ Extirpation of Matter from Right Main Bronchus, Via Natural or Artificial Opening Endoscopic (ICD-10-PCS; principal; 2018-06-27)
PROC: 0BC28ZZ Extirpation of Matter from Carina, Via Natural or Artificial Opening Endoscopic (ICD-10-PCS; principal; 2018-06-27)
PROC: 0BC48ZZ Extirpation of Matter from Right Upper Lobe Bronchus, Via Natural or Artificial Opening Endoscopic (ICD-10-PCS; principal; 2018-06-27)
PROC: 0BC68ZZ Extirpation of Matter from Right Lower Lobe Bronchus, Via Natural or Artificial Opening Endoscopic (ICD-10-PCS; principal; 2018-06-27)
DX: A41.9 Sepsis, unspecified organism (principal); J18.9 Pneumonia, unspecified organism; N17.0 Acute kidney failure with tubular necrosis; E87.2 Acidosis; E11.22 Type 2 diabetes mellitus with diabetic chronic kidney disease; J44.0 Chronic obstructive pulmonary disease with (acute) lower respiratory infection; N18.3 Chronic kidney disease, stage 3 (moderate); E11.65 Type 2 diabetes mellitus with hyperglycemia; E11.40 Type 2 diabetes mellitus with diabetic neuropathy, unspecified; J45.21 Mild intermittent asthma with (acute) exacerbation; J44.1 Chronic obstructive pulmonary disease with (acute) exacerbation; I25.810 Atherosclerosis of coronary artery bypass graft(s) without angina pectoris; G40.909 Epilepsy, unspecified, not intractable, without status epilepticus; R79.89 Other specified abnormal findings of blood chemistry; S31.819A Unspecified open wound of right buttock, initial encounter; L80 Vitiligo; R65.20 Severe sepsis without septic shock; E87.6 Hypokalemia; I12.9 Hypertensive chronic kidney disease with stage 1 through stage 4 chronic kidney disease, or unspecified chronic kidney disease; E78.5 Hyperlipidemia, unspecified; G89.29 Other chronic pain; E66.3 Overweight; F41.1 Generalized anxiety disorder; Z96.642 Presence of left artificial hip joint; Z66 Do not resuscitate; Z51.5 Encounter for palliative care; J20.9 Acute bronchitis, unspecified; E03.9 Hypothyroidism, unspecified; Z86.73 Personal history of transient ischemic attack (TIA), and cerebral infarction without residual deficits; Z88.0 Allergy status to penicillin; Z88.2 Allergy status to sulfonamides; Z91.040 Latex allergy status; Z79.899 Other long term (current) drug therapy; Z87.440 Personal history of urinary (tract) infections; Z95.1 Presence of aortocoronary bypass graft; Z90.49 Acquired absence of other specified parts of digestive tract; Z90.710 Acquired absence of both cervix and uterus; Z98.1 Arthrodesis status; Z87.891 Personal history of nicotine dependence; Z82.49 Family history of ischemic heart disease and other diseases of the circulatory system; Z83.3 Family history of diabetes mellitus; Z80.8 Family history of malignant neoplasm of other organs or systems; Z68.25 Body mass index [BMI] 25.0-25.9, adult

== ENCOUNTER 2018-07-01 16:23 | Emergency (ER) | payer OTHER ==
[~2018-07-01] VITALS: Ht 157.4 cm; Wt 71.2 kg
--- NOTE | ~2018-07-01 | EKG ---
[place], [place] ELECTROCARDIOGRAM REPORT NAME: HERIBERTO CHRISTENSEN UNIT #: [id number] ROOM: DOCTOR: EPIPHANY DRAFT REPORT BIRTHDATE: [birth year] [facility] Test Date: 2018-07-01 Test Time: 17:19:00 Pat Name: HERIBERTO CHRISTENSEN Department: Room: Gender: F Rn Forensic: YONY : 1940 Requested By: MELODIE NICHOLS Order Number: [id number] Reading MD: Martina Hope MD Measurements Intervals [place] Rate: 88 P: 74 NC: 145 QRS: 26 QRSD: 76 T: 17 QT: 406 QTc: 492 Interpretive Statements Sinus rhythm Premature atrial complexes Borderline prolonged QT interval Compared to ECG 06/26/2018 16:09:20 Sinus tachycardia no longer present T-wave abnormality no longer present Electronically Signed On 07-03-2018 9:31:51 PDT by Martina Hope MD CM:EKGRPT:ELECTROCARDIOGRAM REPORT [id number] 0931 MELODIE TREADWELL DRAFT REPORT MELODIE NICHOLS M.D.
[~2018-07-01 16:23] MED LIST changes: +CLARITIN10 MG PO; +DOXYCYCLINE100 M3 PO; +FLONASE ALLERG9.9 ML NAS; +GLUTOSE 1537.5 GM PO; +SERTRALINE HYDR25 MG PO; +VITAMIN D5000 UNI1 PO
[2018-07-01 16:50] LABS: BILIRUBIN NEGATIVE (NEGATIVE); BLOOD NEGATIVE (NEGATIVE); CLARITY CLEAR (CLEAR); COLOR YELLOW (YELLOW); GLUCOSE NEGATIVE (NEGATIVE); KETONE NEGATIVE (NEGATIVE); LEUKO ESTERASE NEGATIVE (NEGATIVE); NITRITE NEGATIVE (NEGATIVE); PH 7.5 (5.0-9.0); SPECIFIC GRAVITY 1.015 (1.005-1.030); UROBILINOGEN 0.2 E.U./dl (0.2-1.0)
[2018-07-01 16:55] LABS: BACTERIA 2+; EPITHELIAL CELLS 0-2; RBC 0-2 rbc/hpf (0-2); WBC 0-2 wbc/hpf (0-5)
[2018-07-01 17:19] LABS: BASO % 0.1 % (0.0-1.0); EOS # 0.8 10*3/uL (0.0-0.4); EOS % 4.2 % (1.0-4.0); HEMOGLOBIN 12.4 g/dl (12.0-16.0); LYMPH # 4.2 10*3/uL (1.3-4.4); LYMPH % 23.2 % (27.0-41.0); MEAN CELL VOLUME 86.4 fl (81.0-99.0); MEAN CORPUSCULAR HGB CONC 33.5 g/dl (33.0-37.0); MEAN PLATELET VOLUME 9.8 fl (9.6-12.3); MONO # 1.3 10*3/uL (0.1-1.0); MONO % 7.5 % (3.0-9.0); NEUT # 11.5 10*3/uL (2.3-7.9); NEUT % 64.4 % (47.0-73.0); PLATELET COUNT AUTOMATED 238 10*3/uL (130-400); RED BLOOD COUNT 4.28 10*6/uL (4.10-5.10); RED CELL DISTRI WIDTH 14.2 % (0-14.5); WHITE BLOOD COUNT 17.9 10*3/uL (4.8-10.8)
[2018-07-01 17:36] LABS: ALKALINE PHOSPHATASE 79 U/L (45-117); BUN 13 mg/dl (7-24); CHLORIDE 99 mmol/L (98-107); CREATININE 0.79 mg/dL (0.55-1.02); POTASSIUM 2.9 mmol/L (3.5-5.1); SGOT/AST 15 IU/L (3-35); SGPT/ALT 45 U/L (12-78); SODIUM 142 mmol/L (136-145); TOTAL PROTEIN 5.8 gm/dL (6.4-8.2)
[2018-07-01 19:25] VITALS: BP 167/96
== END 2018-07-01 20:33 ==
LOC: ED 16:23
PROVIDERS: Emergency Medicine
DX: R41.82 Altered mental status, unspecified (principal); J45.909 Unspecified asthma, uncomplicated; G89.29 Other chronic pain; E78.5 Hyperlipidemia, unspecified; G40.909 Epilepsy, unspecified, not intractable, without status epilepticus; E11.65 Type 2 diabetes mellitus with hyperglycemia; E66.3 Overweight; I12.9 Hypertensive chronic kidney disease with stage 1 through stage 4 chronic kidney disease, or unspecified chronic kidney disease; E11.22 Type 2 diabetes mellitus with diabetic chronic kidney disease; N18.3 Chronic kidney disease, stage 3 (moderate); E11.40 Type 2 diabetes mellitus with diabetic neuropathy, unspecified; Z95.1 Presence of aortocoronary bypass graft; Z90.710 Acquired absence of both cervix and uterus; Z98.890 Other specified postprocedural states; Z90.89 Acquired absence of other organs; Z79.4 Long term (current) use of insulin; Z68.29 Body mass index [BMI] 29.0-29.9, adult; Z86.73 Personal history of transient ischemic attack (TIA), and cerebral infarction without residual deficits; Z87.891 Personal history of nicotine dependence; Z79.899 Other long term (current) drug therapy; Z88.0 Allergy status to penicillin; Z88.2 Allergy status to sulfonamides; Z91.040 Latex allergy status

== ENCOUNTER 2018-09-18 22:35 | Emergency (ER) | payer OTHER ==
[~2018-09-18] VITALS: Ht 162.5 cm; Wt 63.5 kg
--- NOTE | ~2018-09-18 | EKG ---
[place], [place] ELECTROCARDIOGRAM REPORT NAME: HERIBERTO CHRISTENSEN UNIT #: [id number] ROOM: DOCTOR: EPIPHAMAYA DRAFT REPORT BIRTHDATE: [birth year] [facility] Test Date: 2018-09-18 Test Time: 22:51:15 Pat Name: HERIBERTO CHRISTENSEN Department: Room: Gender: F Quill Stripper: : 1940 Requested By: JULIET JIMENEZ Order Number: [id number] Reading MD: Hawk Perez MD Measurements Intervals [place] Rate: 80 P: 66 ID: 187 QRS: 26 QRSD: 72 T: 13 QT: 441 QTc: 509 Interpretive Statements Sinus rhythm Probable left atrial enlargement Prolonged QT interval Compared to ECG 07/01/2018 17:19:00 Atrial premature complex(es) no longer present Electronically Signed On 09-19-2018 8:06:53 PDT by Hawk Perez MD CM:EKGRPT:ELECTROCARDIOGRAM REPORT [id number] JULIET ZAMBRANO DRAFT REPORT JULIET JIMENEZ DO
[2018-09-18 23:02] LABS: BASO # 0.1 10*3/uL (0.0-0.1); BASO % 0.9 % (0.0-1.0); EOS # 0.5 10*3/uL (0.0-0.4); EOS % 5.3 % (1.0-4.0); HEMATOCRIT 41.5 % (37.0-47.0); HEMOGLOBIN 13.6 g/dl (12.0-16.0); LYMPH # 2.3 10*3/uL (1.3-4.4); LYMPH % 22.5 % (27.0-41.0); MEAN CELL VOLUME 89.1 fl (81.0-99.0); MEAN CORPUSCULAR HGB 29.2 pg (27.0-31.0); MEAN CORPUSCULAR HGB CONC 32.8 g/dl (33.0-37.0); MEAN PLATELET VOLUME 9.3 fl (9.6-12.3); MONO # 0.9 10*3/uL (0.1-1.0); MONO % 8.5 % (3.0-9.0); NEUT # 6.4 10*3/uL (2.3-7.9); NEUT % 62.5 % (47.0-73.0); PLATELET COUNT AUTOMATED 289 10*3/uL (130-400); RED BLOOD COUNT 4.66 10*6/uL (4.10-5.10); RED CELL DISTRI WIDTH 12.7 % (0-14.5); WHITE BLOOD COUNT 10.3 10*3/uL (4.8-10.8)
[2018-09-18 23:20] LABS: ALBUMIN 3.4 gm/dl (3.1-4.5); ALKALINE PHOSPHATASE 107 U/L (45-117); BUN 10 mg/dl (7-24); CHLORIDE 102 mmol/L (98-107); CREATININE 0.88 mg/dL (0.55-1.02); POTASSIUM 3.2 mmol/L (3.5-5.1); SGOT/AST 16 IU/L (3-35); SGPT/ALT 18 U/L (12-78); SODIUM 139 mmol/L (136-145); TOTAL PROTEIN 6.8 gm/dL (6.4-8.2)
[2018-09-18 23:24] LABS: TROPONIN I 0.058 ng/ml (<0.045)
[2018-09-19 00:11] LABS: BILIRUBIN NEGATIVE (NEGATIVE); BLOOD TRACE-LYSED (NEGATIVE); CLARITY CLEAR (CLEAR); COLOR YELLOW (YELLOW); GLUCOSE 2+ (NEGATIVE); KETONE NEGATIVE (NEGATIVE); LEUKO ESTERASE NEGATIVE (NEGATIVE); NITRITE NEGATIVE (NEGATIVE); PH 6.5 (5.0-9.0); UROBILINOGEN 0.2 E.U./dl (0.2-1.0)
[2018-09-19 00:17] LABS: RBC 16-20 rbc/hpf (0-2)
== END 2018-09-19 03:25 | disposition other institution (70) ==
LOC: ED 22:35
PROVIDERS: Student in an Organized Health Care Education/Training Program
DX: G89.29 Other chronic pain (principal); M54.9 Dorsalgia, unspecified; I12.9 Hypertensive chronic kidney disease with stage 1 through stage 4 chronic kidney disease, or unspecified chronic kidney disease; E11.22 Type 2 diabetes mellitus with diabetic chronic kidney disease; N18.3 Chronic kidney disease, stage 3 (moderate); J45.909 Unspecified asthma, uncomplicated; I25.10 Atherosclerotic heart disease of native coronary artery without angina pectoris; E66.3 Overweight; E78.5 Hyperlipidemia, unspecified; J44.9 Chronic obstructive pulmonary disease, unspecified; Z88.0 Allergy status to penicillin; Z88.2 Allergy status to sulfonamides; Z91.040 Latex allergy status; Z79.4 Long term (current) use of insulin; Z79.899 Other long term (current) drug therapy; Z79.2 Long term (current) use of antibiotics; Z86.73 Personal history of transient ischemic attack (TIA), and cerebral infarction without residual deficits; Z90.710 Acquired absence of both cervix and uterus; Z95.1 Presence of aortocoronary bypass graft; Z87.891 Personal history of nicotine dependence

== ENCOUNTER 2019-04-06 13:47 | Inpatient (IN) | payer OTHER ==
[~2019-04-06] VITALS: Ht 167.6 cm; Wt 61.3 kg
--- NOTE | ~2019-04-06 | PR ---
[place], [place] PROGRESS NOTE NAME: HERIBERTO CHRISTENSEN UNIT #: [id number] ROOM: 425 DOCTOR: JORGE ALFORD MD BIRTHDATE: [birth year] DOS: 04/10/2019 PULMONARY PROGRESS NOTE SUBJECTIVE: The patient is stating that she had hypoglycemic episode this morning, which is already being treated and feeling better. Respiratory symptoms continue to improve with reduction in symptoms of shortness of breath. Coughing and wheezing have also been progressively resolving. There were no symptoms chest pain, fever or chills. OBJECTIVE: VITAL SIGNS: Which were recorded showed normal temperature, respiratory rate of 16, heart rate 74, blood pressure 150/81. Pulse oxygen saturation on room air was 96% saturation. HEENT: Shows head was atraumatic, eyes nonicterus. NECK: Supple. CARDIOVASCULAR: S1 and S2 audible. LUNGS: The patient was noted without any wheezing or crackles. Breath sounds were noted mildly decreased bilaterally. ABDOMEN: Flat, soft, nontender. Bowel sounds present. EXTREMITIES: No acute edema. IMPRESSION: 1. Progressive and gradual resolution of acute exacerbation of chronic obstructive pulmonary disease and acute tracheobronchitis with current medical management. 2. Type 2 diabetes mellitus with the current hypoglycemia, already treated. PLAN OF MANAGEMENT: The patient could be discharged to the long term facility with oral medications, conversion of steroids as prednisone from Solu-Medrol. Oral antibiotic to complete the total duration course for a minimum of 7 days. Other therapy and plan of management. Additional treatment changes will be made based on progression of the illness. [place], [place] PROGRESS NOTE NAME: HERIBERTO CHRISTENSEN UNIT #: [id number] ROOM: 425 DOCTOR: JORGE ALFORD MD BIRTHDATE: [birth year] JORGE COLLINS MD CM:PNTRANS 0 1 JORGE SRIVASTAVA MD 04/10/19 0852 interface
--- NOTE | ~2019-04-06 | EKG ---
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
--- NOTE | ~2019-04-06 | PROC NOTE ---
[place], [place] PROCEDURE NOTE NAME: [id number] UNIT #: [id number] ROOM: 425 DOCTOR: SANTOS LEE BIRTHDATE: [birth year] DOS: 04/07/2019 LOCATION: Room #425-1. DOCTOR: Dr. Angel Pichardo. HISTORY: The patient is an 78-year-old female referred for a modified barium swallow study following a choking episode at the [facility] where she lives. The patient has a past medical history of coronary artery disease, diabetes, closed head injury and stroke. She is a prior smoker. She was admitted to this facility due to choking on a piece of chicken. She was able to clear and expectorate the food. However, afterward she complained of persistent globus sensation. She was observed at [facility] after the episode with increased work of breathing, hypoxia and wheezing, which was treated with nebulizer breathing treatment. Upon admission to hospital, chest x-ray revealed no pneumonia or other pathology of the lungs. She had been on a regular diet and thin liquids at [facility]. She later reported at hospital that her globus sensation had subsided; however, given breathing difficulty after the episode and her age and past medical history, it was deemed appropriate to perform this procedure to assess for swallowing dysfunction and determine safe diet. Oral mechanism examination revealed mild lingual weakness, range of motion and coordination of facial muscles were within functional limits. Volitional swallow of saliva was normal. Volitional cough was mildly weak. METHODS AND MATERIALS USED FOR EXAM: The patient was positioned in the lateral plane and the exam was reviewed under fluoroscopy and was videotaped. A variety of substances were used during this examination including barium coated turkey sandwich x 1, barium coated applesauce via teaspoon x 1, nectar thick liquid barium via teaspoon x 1 and honey-thick liquid barium via teaspoon x 2. ORAL AND PHARYNGEAL PHASE: The patient demonstrated adequate control of the bolus with appropriate AP transfer and tongue to posterior pharyngeal wall contact with both regular consistency and pureed. Mastication was prolonged during trial of turkey sandwich. Residue was present, but minimal. The pharyngeal phase of the swallow during liquid trials was characterized by moderate to severe dysfunction. During the first trial of nectar thick liquid, the patient took a large amount into oral cavity and swallowed the large bolus all at once, resulting in the patient's silently aspirating a moderate amount of liquid past the level of the vocal folds. This did not appear to be sensed by the patient who had a wet vocal quality immediately after and had to be cued to cough. Next, the trial was a small amount of honey thick liquid, which resulted in a small amount of aspiration, which was also not sensed by the patient. Clinician then trialled honey thick liquid with a chin tuck maneuver to compensate. This resulted in no aspiration or penetration and minimal residue. Swallows of regular in puree consistencies were triggered at the level of the vallecula; however, during trials of liquids, pharyngeal swallow was not triggered until bolus was at the level of the piriform sinuses. ESOPHAGEAL PHASE: This phase was not formally assessed during the evaluation. [place], [place] PROCEDURE NOTE NAME: HERIBERTO CHRISTENSEN UNIT #: [id number] ROOM: 425 DOCTOR: SANTOS LEE BIRTHDATE: [birth year] RESULTS AND RECOMMENDATIONS: The patient presents with moderate pharyngeal dysphagia characterized by delayed initiation of the swallow causing silent aspiration of liquids into the laryngeal vestibule with both nectar and honey consistencies. Anterior hyoid movement was present, but mildly reduced. Tongue base to posterior pharyngeal wall contact was within functional limits. Given the absence of attempts to clear/cough with aspiration events, the likelihood of future aspiration events is high with thin and nectar consistencies. Recommending the patient to be placed on regular diet and honey-thick liquids with therapy to learn and implement compensatory strategies to reduce aspiration including chin tuck with liquids, small sips, upright posture and throat clear after liquid swallows. Recommendation is shared with patient and nursing staff. Thank you for this referral. Santos Lee CM:PROCNOTE:PROCEDURE NOTE [id number] 0247 SANTOS LEE
--- NOTE | ~2019-04-06 | PR ---
[place], [place] PROGRESS NOTE NAME: HERIBERTO CHRISTENSEN UNIT #: [id number] ROOM: 425 DOCTOR: DENNIS SRIVASTAVA MD,JORGE BIRTHDATE: [birth year] DOS: 04/09/2019 PULMONARY PROGRESS NOTE SUBJECTIVE: She was comfortably resting on a bed this morning of assessment has not reported symptoms of chest pain, shortness breath or coughing. The patient has been improving gradually and progressively. The wheezing was also improving. OBJECTIVE: VITAL SIGNS: This morning of assessment, normal temperature, respiratory rate 18, heart rate of 85 and blood pressure 152/72. HEENT: Examination shows head was atraumatic. Eyes nonicterus. NECK: Supple. CARDIOVASCULAR: S1, S2 is audible. LUNGS: Noted without any wheezing or crackles. ABDOMEN: Soft, nontender. Bowel sounds present. EXTREMITIES: No acute change. IMPRESSION: Progressive and gradual resolution, continued of acute exacerbation of bronchial asthma has chronic obstructive pulmonary disease. PLAN OF TREATMENT: Decrease Solu-Medrol dose to 40 mg daily today. Discharge planning could be started by the primary care physician. From the pulmonary standpoint, we will discharge back to the alf facility. In the meantime, other therapy and medication has been ordered will be continued without any changes. JORGE COLLINS MD CM:PNTRANS [phone] JORGE SRIVASTAVA MD 04/10/19 0134 interface
--- NOTE | ~2019-04-06 | CON ---
[place], [place] REPORT OF CONSULTATION NAME: HERIBERTO CHRISTENSEN UNIT #: [id number] ROOM: 425 DOCTOR: CHANDLER CORCORAN DO BIRTHDATE: [birth year] DOS: 04/07/2019 PULMONARY CONSULTATION NOTE REQUESTED BY: Dr. Feldman. CHIEF COMPLAINT AND REASON FOR CONSULTATION: Shortness of breath and choking. HISTORY OF PRESENT ILLNESS: An 78-year-old female who presented to [facility] after choking while trying to eat lunch at the skilled nursing. The patient states she was eating and bent over to help one of the other resident, started choking on her food. The patient states that she was able to cough some of her food up, but she had a sensation of food that stuck in her throat for a little while. The patient states that this feeling has gone away. The patient states that she has been short of breath for the past few days. The patient states she has a history of COPD. The patient states that she now feels pretty close to her baseline. Imaging at admission, the patient had a chest x-ray that showed no acute pathology. MEDICAL HISTORY: The patient has past medical history of seizures, anxiety, asthma, coronary artery disease, chronic back pain, chronic kidney disease stage 3, COPD, general anxiety, history of VRE infection, history of stroke, history of hyperlipidemia, hypertension, neuropathy, type 2 diabetes with insulin-dependent, vitiligo and history of decubitus ulcer on right buttock. PAST SURGICAL HISTORY: Carotid endarterectomy, colectomy, knee surgery, hysterectomy, total hip arthroplasty on the left, history of breast biopsy, history of hip surgery, right-sided IM nail and history of CABG. SOCIAL HISTORY: She is a former smoker. She does not use illicit drugs, does not drink alcohol. FAMILY HISTORY: The patient's father of cancer. The patient's mother of an unknown cause. ALLERGIES: The patient is allergic to PENICILLIN, SULFA and LATEX. HOME MEDICATIONS: Are albuterol HFA, Breo-Ellipta, DuoNeb, Incruse Ellipta, Flonase, Lipitor, vitamin D, Plavix, gabapentin, Keppra, Synthroid, oxybutynin, sertraline, tramadol, insulin sliding scale and insulin Lantus SoloSTAR 52 units subQ daily. REVIEW OF SYSTEMS: GENERAL: The patient denies fevers, chills, weight loss, weight gain. HEENT: The patient reports throat pain. Denies vision changes, hearing loss or mouth pain. CARDIOVASCULAR: The patient denies chest pain, palpitations, lower extremity edema or diaphoresis. RESPIRATORY: The patient reports shortness of breath. The patient reports cough. The patient denies hemoptysis, wheezing, dyspnea on exertion, paroxysmal [place], [place] REPORT OF CONSULTATION NAME: HERIBERTO CHRISTENSEN UNIT #: [id number] ROOM: [facility] DOCTOR: CHANDLER CORCORAN DO BIRTHDATE: [birth year] nocturnal dyspnea, stridor or sputum production. ABDOMINAL: The patient denies abdominal pain, nausea, vomiting, diarrhea, constipation, melena, hematochezia, hematemesis or loss of appetite. GENITOURINARY: The patient denies dysuria, hematuria, increased frequency or urgency. NEUROLOGIC: The patient states she is not lightheaded, dizzy or confused. PSYCHIATRIC: The patient denies depression, anxiety or substance abuse. ENDOCRINE: The patient denies polydipsia, heat intolerance, cold intolerance. The patient denies any new skin rashes, lesions or ulcers. PHYSICAL EXAMINATION: VITAL SIGNS: Temperature 98.6, pulse is 97, respiratory rate 20, blood pressure 148/72, pulse ox is 72% on room air. GENERAL APPEARANCE: Awake, alert, oriented, cooperative, in no acute distress. HEENT: Head is normocephalic, atraumatic. Eyes are nonicteric. No drainage. Nares patent. NECK: Without lesions, masses or ulcerations. Trachea midline. Supple. HEART: Regular rate and rhythm. No murmurs. S1, S2 audible. No lower extremity edema. LUNGS: No respiratory distress or shortness of breath. Positive cough, positive wheezing bilaterally, positive rhonchi and diminished bilaterally. ABDOMEN: Soft, nontender, no distention. Bowel sounds are present. EXTREMITIES: No clubbing, cyanosis or edema. NEUROLOGIC: No focal neurologic deficits. Cranial nerves 2-12 are grossly intact. PSYCHOLOGIC: Good historian. Good recent memory, good remote memory. SKIN: Warm and dry. No rashes, ulcerations or lesions. The patient does have skin changes consistent with history of vitiligo. LABORATORY DATA: White count today is 7.8, hematocrit 38.5, hemoglobin 12.4, platelet count 311. Chemistry: Sodium 137, potassium 5.6, chloride 104, carbon dioxide 25, BUN 24, creatinine 1.3, calcium 8.6, phos 3.3, magnesium 2.0. MICROBIOLOGY: Blood cultures and urine cultures are pending. IMAGING was discussed previously. ASSESSMENT: 1. Acute asthma exacerbation. 2. Pneumonitis. 3. Choking. 4. Acute on chronic renal failure. 5. Lactic acidosis. 6. Type 2 diabetes with long-term use of insulin. 7. Chronic obstructive pulmonary disease. PLAN: The patient should be treated as acute pneumonitis/reactive airway with steroids, antibiotics per the hospitalist choice. DuoNeb and Mucinex. Further care will be based upon progression of illness. [place], [place] REPORT OF CONSULTATION NAME: HERIBERTO CHRISTENSEN UNIT #: [id number] ROOM: 425 DOCTOR: CHANDLER CORCORAN DO BIRTHDATE: [address] Feldman for the consult and allowing us to participate in the patient's care. Master Corcoran DO JAZZY FELDMAN MD CM:CONSTR:REPORT OF CONSULTATION 1055 04/08/19 0255 interface
--- NOTE | ~2019-04-06 | PR ---
[place], [place] PROGRESS NOTE NAME: HERIBERTO CHRISTENSEN UNIT #: [id number] ROOM: 425 DOCTOR: DENNIS SRIVASTAVA MD,JORGE BIRTHDATE: [birth year] DOS: 04/08/2019 PULMONARY PROGRESS NOTE SUBJECTIVE: She has been noted comfortable at this time, resting on the bed. Reported reduction of the respiratory symptoms of coughing, wheezing and shortness of breath. There were no symptoms of fever or chills stated by the patient. Denies symptoms of abdominal pain. OBJECTIVE: VITAL SIGNS: For the patient recorded as normal temperature, respiratory rate 20, heart rate 87, blood pressure 153/77, pulse oxygen saturation on room air 95% saturation recorded. HEENT: Head was atraumatic. Chronic changes. NECK: Supple. CARDIOVASCULAR: S1, S2 is audible. LUNGS: Noted with expiratory wheezing, which has been improving, currently noted mild to moderate compared to previous examination. ABDOMEN: Soft, nontender. Bowel sounds present. EXTREMITIES: No acute change. IMPRESSION: Stable respiratory status with improving acute exacerbation of chronic obstructive pulmonary disease, bronchial asthma, gradually progressively and acute bronchitis. PLAN OF TREATMENT: No changes in the plan of care at this time will be recommended. Continue other therapy as previously in progress. Usual care. All supportive plan and management and care. JORGE COLLINS MD CM:PNTRANS [phone] JORGE SRIVASTAVA MD 04/09/19 0150 interface
--- NOTE | ~2019-04-06 | CON ---
[place], [place] REPORT OF CONSULTATION NAME: HERIBERTO CHRISTENSEN UNIT #: [id number] ROOM: 425 DOCTOR: DENNIS SRIVASTAVA MDJORGE BIRTHDATE: [birth year] DOS: 04/07/2019 PULMONARY CONSULTATION, EVALUATION, AND MANAGEMENT CONSULTATION REQUESTED BY: Rashard Hopkins M.D. REASON FOR CONSULTATION: To assess the patient for abnormal respiratory symptom, choking, and possibility of aspiration. The patient was independently seen and examined, [id number] encounter, history was confirmed. Physical examination was performed. Labs were reviewed independently. Assessment for this consultation was personally made for this patient after that. The management changes recommended personally as well. The note done by the medical billing representative was approved. HISTORY OF PRESENT ILLNESS: This is an 78-year-old white female patient with past history of COPD, bronchial asthma, presented to the hospital from the nursing facility as the patient noted choking episode at a [facility]. She was eating, bend over to have something resulting in choking of her food. The patient had cough and expectorated some food as well. The patient was feeling some kind of food was still stuck in the throat as the patient presented to the Emergency Room. She presented to the Emergency Room. Symptoms were noted with gradual resolution, but the patient developed increased cough, shortness breath, and also noted with wheezing. Denies symptoms of chest pain. The patient denies any symptoms of hemoptysis. This morning as the patient was assessed, she was still noted with significant coughing as well, reported symptoms of shortness of breath as well. PAST MEDICAL HISTORY: Known with: 1. Chronic obstructive pulmonary disease. 2. History of bronchial asthma. 3. General anxiety disorder. 4. Absence seizure. 5. Intervertebral disk disease, lower back pain. 6. Hyperlipidemia. 7. Essential hypertension. 8. Peripheral neuropathy. 9. Type 2 diabetes mellitus. 10. History of vitiligo. 11. Coronary artery disease. PAST SURGICAL HISTORY: Noted: 1. Carotid endarterectomy, partial colectomy. 2. Knee replacement. 3. Complete hysterectomy. 4. Left hip arthroplasty. 5. Biopsy of the breast. 6. ORIF of the right hip fracture. 7. Coronary artery bypass grafting. [place], [place] REPORT OF CONSULTATION NAME: HERIBERTO CHRISTENSEN [facility] #: [id number] UNIT #: [id number] ROOM: 425 DOCTOR: DENNIS SRIVASTAVA MD,JORGE BIRTHDATE: [birth year] HOME MEDICATIONS: Home medications from the usp were listed as several that includes Proventil HFA inhaler p.r.n. use, Xanax, vitamin C, Lipitor, vitamin D, Plavix, doxycycline, Flonase, Breo Ellipta, Lasix, Vicodin, DuoNeb, levothyroxine, loratadine, losartan, magnesium hydroxide, Macrodantin, tapering prednisone, Incruse Ellipta, and some other p.r.n. meds. CURRENT MEDICATIONS: Current medications, which were administered on this hospitalization actually were noted as gabapentin, tramadol, Flonase, oxybutynin, sertraline, omeprazole, Keppra, levothyroxine, Lipitor, Plavix, Lovenox, and DuoNebs. DRUG ALLERGIES: REPORTED ALLERGY TO: 1. PENICILLIN. 2. SULFA DRUGS. SOCIAL HISTORY: The patient was noted with history of tobacco use, started younger age, a pack of cigarettes per day, stated discontinued about 30 years ago. She denies history of alcohol use or any illicit drug use. Currently, permanent resident at nursing facility. FAMILY HISTORY: This patient's father of unknown cancer. Mother also , history was unknown. REVIEW OF SYSTEMS: CONSTITUTIONAL SYMPTOMS: Fatigue and tiredness noted without any symptoms of fever or chills. EYES: Denies any burning, redness, or tenderness. EARS, NOSE, AND THROAT SYMPTOMS: No sore throat, hoarseness, otalgia, postnasal drainage, or epistaxis. CARDIOVASCULAR SYSTEM: Denies angina pain, edema, or pain of the lower extremities. GASTROINTESTINAL SYMPTOMS: No dysphagia, nausea, vomiting, diarrhea, abdominal pain, hematemesis, melena, or hematochezia. SKIN: Denies abnormal lesions or rashes. CENTRAL NERVOUS SYSTEM: No dizziness, headache, diplopia, or syncopal episodes. Remaining systems were reviewed and they were noted all negative. PHYSICAL EXAMINATION: GENERAL: This is an 78-year-old elderly female patient, who has been currently sitting on the bed, without any acute distress. Height is noted as 5 feet 6 inches, weight of 135 pounds. VITAL SIGNS: The vital signs of the patient, which were recorded as normal temperature, respiratory rate 16-18, heart rate was noted as 97-103, and blood pressure 140/72-115/53. Pulse oxygen saturation is recorded as 92% saturation on room air. HEENT: Examination shows head was atraumatic. Eyes nonicterus. NECK: Supple. CARDIOVASCULAR SYSTEM: S1, S2 was audible. LUNGS: Noted diffuse expiratory wheezing. There were no crackles. [place], [place] REPORT OF CONSULTATION NAME: HERIBERTO CHRISTENSEN UNIT #: [id number] ROOM: 425 DOCTOR: MAURO ALFORD MDM BIRTHDATE: [birth year] ABDOMEN: Soft, nontender. Bowel sounds present. EXTREMITIES: Noted without any acute edema. MUSCULOSKELETAL: Without any acute deformities. CENTRAL NERVOUS SYSTEM: Cranial nerves 2-12 intact. LABORATORY DATA: The BMP that was done yesterday in the Emergency Room, BUN is 22, creatinine is 1.52, and glucose is 184. PT and PTT was noted as normal. Lactic acid is 2.4 yesterday. CBC that was done yesterday, WBC count is 14.5. Remaining CBC was normal. The CBC this morning was noted as normal CBC. BMP this morning, BUN is 24 and creatinine is 1.32. IMAGING DATA: The chest x-ray, 1 view, which was done in the Emergency Room was reviewed and it does not show any acute pulmonary infiltration. IMPRESSION: 1. The patient with acute tracheobronchitis with acute exacerbation of chronic obstructive pulmonary disease, possibility of some aspiration in the endobronchial cannot be excluded resulting in acute exacerbation of bronchial asthma and chronic obstructive pulmonary disease. 2. The patient with history of hypothyroidism, coronary artery disease, and many other illnesses as the patient was noted. PLAN OF MANAGEMENT: The patient was started on IV Solu-Medrol 40 mg every 8 hours. The bronchodilator will be continued. Sputum for Gram stain culture as the patient is able to expectorate sputum. She was also planned for modified barium swallow assessment to assess the patient's swallowing reflex. In the meantime, other therapy and plan of management as previously ordered will be continued without any changes. Usual care. Thanks for allowing me to participate in the care of this patient. JORGE COLLINS MD CM:CONSTR:REPORT OF CONSULTATION 1605 05/04/19 1151 interface
[~2019-04-06 13:47] MED LIST changes: +MACROBID100 M1 PO
[2019-04-06 13:52] VITALS: BP 115/53
[2019-04-06 14:41] LABS: BASO # 0.1 10*3/uL (0.0-0.1); BASO % 0.6 % (0.0-1.0); EOS # 0.2 10*3/uL (0.0-0.4); EOS % 1.3 % (1.0-4.0); HEMATOCRIT 39.7 % (37.0-47.0); HEMOGLOBIN 12.7 g/dl (12.0-16.0); LYMPH # 1.8 10*3/uL (1.3-4.4); LYMPH % 12.6 % (27.0-41.0); MEAN CELL VOLUME 93.2 fl (81.0-99.0); MEAN CORPUSCULAR HGB 29.8 pg (27.0-31.0); MEAN PLATELET VOLUME 8.8 fl (9.6-12.3); MONO # 1.3 10*3/uL (0.1-1.0); MONO % 8.7 % (3.0-9.0); NEUT % 76.1 % (47.0-73.0); PLATELET COUNT AUTOMATED 291 10*3/uL (130-400); RED BLOOD COUNT 4.26 10*6/uL (4.10-5.10); RED CELL DISTRI WIDTH 12.6 % (0-14.5); WHITE BLOOD COUNT 14.5 10*3/uL (4.8-10.8)
[2019-04-06 14:53] LABS: ACT PARTIAL THROMBO TIME 31.2 SECONDS (20.0-32.1); INTERNATIONAL NORM RATIO 0.9 (2.0-3.5)
[2019-04-06 14:58] LABS: CREATININE 1.52 mg/dL (0.55-1.02); POTASSIUM 4.9 mmol/L (3.5-5.1)
[2019-04-06 14:59] LABS: TROPONIN I 0.027 ng/ml (<0.045)
--- NOTE | 2019-04-06 15:33 | NUR ---
LAB CALLED LA2.4 DR JUAREZ NOTIFIED
[2019-04-06 15:48] LABS: BILIRUBIN NEGATIVE (NEGATIVE); BLOOD NEGATIVE (NEGATIVE); CLARITY CLEAR (CLEAR); COLOR YELLOW (YELLOW); GLUCOSE 1+ (NEGATIVE); KETONE NEGATIVE (NEGATIVE); LEUKO ESTERASE TRACE (NEGATIVE); NITRITE NEGATIVE (NEGATIVE); UROBILINOGEN 0.2 E.U./dl (0.2-1.0)
[2019-04-06 15:54] LABS: BACTERIA 1+; EPITHELIAL CELLS 21-30; HYALINE CAST 0-2
[2019-04-06 16:00] VITALS: BP 140/80
--- NOTE | 2019-04-06 18:00 | NUR ---
LAB CALLED LA 2.5 DR JUAREZ NOTIFIED
--- NOTE | 2019-04-06 18:30 | NUR ---
Time: 1829 A 78 year old FEMALE admitted to 4E under services of DR. GASTON MACIAS,JAZZY. Pt. arrived via stretcher from ER. Chief complaint: CHOKING EPISODE AT [facility]. STATES SHE CHOKED ON CHICKEN. LUNGS DIMINISHED WITH EXP WHEEZES AND RHONCHI THROUGHOUT. STATES SHE IS FEELING MUCH BETTER THEN SHE WAS WHEN EPISODE OCCURED. DENIES COUGH. MARVA MAE
[2019-04-06] MEDS ORDERED: NOVOLOG100 UNIT/1 SQ (18:46)
[2019-04-06] MEDS ORDERED: OMEPRAZOLE D/R20 MG PO (18:47)
[2019-04-06] MEDS ORDERED: SERTRALINE HYDR25 MG PO (18:48)
[2019-04-06] MEDS ORDERED: TRAMADOL HCL50 MG PO (18:49)
[2019-04-06] MEDS ORDERED: [UNRECOGNIZED DRUG - OTHER] PO (18:53)
[2019-04-06] MEDS ORDERED: MELATONIN3 MG PO (18:54)
[2019-04-06] MEDS ORDERED: DITROPAN XL5 MG PO (18:56)
--- NOTE | 2019-04-06 18:57 | NUR ---
DR. COLLINS NOTIFIED OF CONSULT.
[2019-04-06] MEDS ORDERED: GRALISE300 M1 PO (18:58)
--- NOTE | 2019-04-06 19:09 | NUR ---
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
--- NOTE | 2019-04-06 20:59 | NUR ---
DR PERLA NOTIFIED OF ELEVATED LACTIC ACID OF 2.3
[2019-04-07] VITALS: BP 140/73
[2019-04-07 06:04] LABS: CREATININE 1.32 mg/dL (0.55-1.02); PHOSPHOROUS 3.3 mg/dL (2.5-4.9); POTASSIUM 5.6 mmol/L (3.5-5.1)
[2019-04-07 06:12] LABS: HEMATOCRIT 38.5 % (37.0-47.0); HEMOGLOBIN 12.4 g/dl (12.0-16.0); MEAN CORPUSCULAR HGB 29.3 pg (27.0-31.0); MEAN CORPUSCULAR HGB CONC 32.2 g/dl (33.0-37.0); MEAN PLATELET VOLUME 9.5 fl (9.6-12.3); PLATELET COUNT AUTOMATED 311 10*3/uL (130-400); RED BLOOD COUNT 4.23 10*6/uL (4.10-5.10); RED CELL DISTRI WIDTH 12.6 % (0-14.5); WHITE BLOOD COUNT 7.8 10*3/uL (4.8-10.8)
[2019-04-07 07:15] LABS: ATYPICAL LYMPHS 1 % (0-0); BASOPHILS 1 % (0-1); PLATELET SUFFICIENCY NORMAL (NORMAL); TOTAL CELLS COUNTED 100 #CELLS
[2019-04-07 08:00] VITALS: BP 148/72
--- NOTE | 2019-04-07 08:26 | NUR ---
Patient comes from [facility], patient is ok to return when medically stable for discharge.
--- NOTE | 2019-04-07 09:00 | NUR ---
Cattle Inspector in to see patient. She is a LTC resident at [facility] and plan to return on discharge. She states she gets up and around in a wheelchair. When medically stable she will be discharged to [facility]. cyber policy and strategy planner following.
[2019-04-07 12:00] VITALS: BP 133/58
--- NOTE | 2019-04-07 12:16 | NUR ---
SPEECH PATHOLOGY Patient was seen for modified barium swallow study this am. Hx of coronary artery disease, diabetes, closed head injury, and stroke. She is a prior smoker. The patient was admitted to the facility after a choking episode at the SNF where she lives. She reportedly was choking on a piece of sweet'n sour chicken. She was able to cough and expel it, however, she continued to feel a persistent globus sensation afterward. Chest x-ray revealed no pneumonia or other consolidations in the lungs. She was on a regular diet and thin liquids prior to the choking episode. She was observed at [facility] after episode with increased work of breathing, hypoxic and wheezing. She was treated with nebulizer breathing treatment before being taken to hospital. She reported at the hospital that the globus sensation had subsided, however, given the breathing issues and her age and medical history, it was deemed appropriate to perform this MBS to rule out swallowing issues and determine safest diet. Oral mechanism exam revealed mild linguial weakness. Rande of motion and coordination were within functional limits. MBS consistencies trialed included 1 spoonful of pureed applesauce, 1 bite of turkey sandwich, nectar-thick barium, and honey-thick barium. Pureed applesauce and turkey sandwich were swallowed without difficulty and minimal residue after swallow. Observed prolonged mastication of turkey sandwich and triggered swallow at the level of the valleculae. Mild pharyngeal residue post-swallow. No penetration/aspiration or other swallowing dysfunction noted with solid or pureed consistencies. On first trials of nectar-thick liquid, patient took a large amount into her oral cavity and swallowed it all at once with a medium-sized aspiration event observed with liquid passing the vocal folds. This swallow was triggered at the pyriform sinus. She did not immediately cough. Wet vocal quality was observed and she was prompted to cough. She coughed 2 small coughs but did not attempt to clear or appear to be bothered by the aspiration. She was then given small amount of honey-thick liquid with small amount of silent aspiration on this trial as well and no attempts to cough/clear. With another small sip of honey-thick and cues to tuck chin, bolus was swallowed with no penetration/aspiration. Patient suffers from moderate pharyngeal dysphagia characterized by a delayed initiation of the swallow, causing aspiration of liquids into the larengeal vestibule with nectar and honey consistencies. Anterior hyoid movement present but mildly reduced. Posterior pharyngeal wall contact within functional limits. Given the absence of attempts to clear/cough with aspiration events, likelihood of future aspiration events is likely with thin/nectar consistencies. Recommending patient on regular diet and honey-thick liquids with therapy to learn and implement compensatory strategies including chin tuck with liquids, small sips, upright posture, and throat clear after liquid swallows. Thank you for this referral. Santos Bustos MA [facility] STOCK[facility]
--- NOTE | 2019-04-07 14:28 | NUR ---
Patient clincal updates faxed to [facility] for review. patient keno terminal operator care and ok to return when medically stable for discharge.
[2019-04-07 16:00] VITALS: BP 134/67
--- NOTE | 2019-04-07 19:06 | NUR ---
PATIENT RESTING IN BED WITH EYES CLOSED AT THIS TIME. RESPIRATIONS ARE EASY AND REGULAR. NO DISTRESS IS NOTED. IV FLUIDS INFUSING INTO RIGHT ARM. BED IS IN LOWEST POSTIION WITH WHEELS LOCKED. SIDE RAILS UP X2. CALL LIGHT IS WITHIN REACH. WILL CONTINUE TO MONITOR.
[2019-04-07 20:00] VITALS: BP 142/68
[2019-04-08] VITALS: BP 143/73
[2019-04-08 06:43] LABS: BASO % 0.1 % (0.0-1.0); HEMATOCRIT 35.6 % (37.0-47.0); HEMOGLOBIN 11.6 g/dl (12.0-16.0); LYMPH # 2.3 10*3/uL (1.3-4.4); LYMPH % 13.1 % (27.0-41.0); MEAN CELL VOLUME 90.6 fl (81.0-99.0); MEAN CORPUSCULAR HGB 29.5 pg (27.0-31.0); MEAN CORPUSCULAR HGB CONC 32.6 g/dl (33.0-37.0); MEAN PLATELET VOLUME 9.2 fl (9.6-12.3); MONO # 0.7 10*3/uL (0.1-1.0); MONO % 3.8 % (3.0-9.0); NEUT # 14.5 10*3/uL (2.3-7.9); NEUT % 82.4 % (47.0-73.0); PLATELET COUNT AUTOMATED 338 10*3/uL (130-400); RED BLOOD COUNT 3.93 10*6/uL (4.10-5.10); RED CELL DISTRI WIDTH 12.6 % (0-14.5); WHITE BLOOD COUNT 17.6 10*3/uL (4.8-10.8)
[2019-04-08 07:13] LABS: BUN 22 mg/dl (7-24); CHLORIDE 109 mmol/L (98-107); CREATININE 1.01 mg/dL (0.55-1.02); SODIUM 142 mmol/L (136-145)
[2019-04-08 07:30] LABS: POTASSIUM 4.5 mmol/L (3.5-5.1)
[2019-04-08 08:00] VITALS: BP 144/76
[2019-04-08 12:00] VITALS: BP 153/77
[2019-04-08 16:00] VITALS: BP 165/89
[2019-04-08 20:00] VITALS: BP 173/86
--- NOTE | 2019-04-08 20:00 | NUR ---
24 HOUR CHART CHECK COMPLETE.
[2019-04-08 20:40] VITALS: BP 152/90
--- NOTE | 2019-04-08 21:30 | NUR ---
PT COOPERATED DURING MEDICATION ADMINISTRATION W/ HONEY THICK LIQUIDS. TOLERATED WELL WITH NO COMPLAINTS.
[2019-04-09] VITALS (7 sets, daily range): BP systolic 118–181; BP diastolic 65–90
--- NOTE | 2019-04-09 12:05 | NUR ---
PT REFUSING THICKENER IN PEPSI, PT AND FAMILY EDUCATED ON RISK
--- NOTE | 2019-04-09 21:24 | NUR ---
AVIS NOTIFIED THIS RN OF ELEVATED BLOOD PRESSURE, MANUAL RECHECK IT IS 180/90, NOTIFIED DR FELDMAN. RECEIVED ORDERS TO GIVE PATIENT 0.1MG CLONIDINE AT THIS TIME. WILL CONTINUE TO MONITOR PATIENT.
[2019-04-10] VITALS: BP 150/81
[2019-04-10 08:00] VITALS: BP 144/80
--- NOTE | 2019-04-10 09:00 | NUR ---
Learning Disabilities Resource Teacher in to see patient. She is a LTC resident at [facility] and plan to return on discharge. When medically stable she will be discharged to [facility]. raw material planner following.
--- NOTE | 2019-04-10 09:11 | NUR ---
SPEECH PATHOLOGY Patient was seen for dysphagia treatment this am. Patient was alert and cooperative. She was sitting at side of bed. Patient was educated on results and callie. from Wednesday's MBS as she was not able to fully recall them. Reasoning and method for thickening liquid was explained. Patient had a large cup of penny fina at bedside, with ice, unthickened. She was reluctant to allow clinician to thicken it, but after explanation regarding silent aspiration of thin liquids and aspiration risk, she was in agreement. Patient reported that she likes ice in her liquids. She was educated that she will likely need to add more thickener to her liquids as she continues to drink, because as the ice melts, the liquid will thin out. She verbalized understanding. Prior to thickening she was given her penny fina to sip, unthickened. After swallowing, she stated that it went down fine, but she was reminded that due to silent aspiration, it will appear to go down fine, as she may not cough or show any symptom. She verbalized understanding and was pleased to have the information, as she stated she did not know any of this. Liquids were then thickened and she swallowed using a chin tuck maneuver after model and cue. She continued to implement this while sipping liquid and showed no overt difficulty. She was then given pharyngeal exercises to perform, in an attempt to improve laryngeal elevation to eliminate penetration/aspiration. It was recommended that patient continue to perform the exercises with a f/u MBS to be performed in a couple weeks to determine if she could tolerate thin liquids as she expressed dislike of them. Patient will be provided with a written copy of exercises. Continued therapy is recommended. JENNIFER SEXTON MSCCC-GEODETIC SURVEY DIRECTOR
[2019-04-10] MEDS ORDERED: LEVAQUIN500 M2 PO (14:30)
[2019-04-10] MEDS ORDERED: PREDNISONE10 MG PO (14:30)
--- NOTE | 2019-04-10 15:01 | NUR ---
Patient is discharged to return to [facility]. Transportation scheduled for 4 PM with [facility]. NH, nursing/mail forwarding system markup clerk and son all notified.
--- NOTE | 2019-04-10 15:47 | NUR ---
Discharge instructions reviewed with patient/family. Patient receptive and verbalizes understanding. Follow-up care arranged. Written instructions given to patient/family. PAUL GERMAIN
--- NOTE | 2019-04-10 15:49 | NUR ---
PATIENT DISCHARGED TO [facility].
[2019-05-18] MEDS ORDERED: NORCO 5-325 TA1 EACH PO (17:25)
[2019-05-18] MEDS ORDERED: BENADRYL ALLERG25 M5 PO (17:26)
[2019-05-26] MEDS ORDERED: PREDNISONE10 MG PO (12:57)
[2019-05-26] MEDS ORDERED: DOXYCYCLINE100 M3 PO (12:57)
[2019-06-15] MEDS ORDERED: APAP325 MG PO (19:26)
[2019-06-15] MEDS ORDERED: BASAG SOL SQ (19:28)
[2019-06-15] MEDS ORDERED: LYRICA50 M1 PO (19:30)
[2019-07-03] MEDS ORDERED: XANAX0.25 MG PO (00:04)
[2019-07-03] MEDS ORDERED: MOM30 M1 PO (00:07)
[2019-07-03] MEDS ORDERED: DULCOLAX10 M1 R (00:08)
[2019-07-08] MEDS ORDERED: DOXYCYCLINE100 M3 PO (12:07)
[2019-07-08] MEDS ORDERED: FLAGYL500 MG PO (12:08)
== END 2019-04-10 15:49 | disposition other institution (70) | DRG 871 ==
LOC: ED 13:47 → 4E 15:46 → EDHOLD 15:46 → 4E 18:14
PROVIDERS: Emergency Medicine; Internal Medicine; ADMIT Internal Medicine
PROC: BD1BYZZ Fluoroscopy of Mouth/Oropharynx using Other Contrast (ICD-10-PCS; principal; 2019-04-07)
DX: A41.9 Sepsis, unspecified organism (principal); J69.0 Pneumonitis due to inhalation of food and vomit; N17.9 Acute kidney failure, unspecified; N39.0 Urinary tract infection, site not specified; J44.1 Chronic obstructive pulmonary disease with (acute) exacerbation; E87.1 Hypo-osmolality and hyponatremia; J45.901 Unspecified asthma with (acute) exacerbation; T17.828A Food in other parts of respiratory tract causing other injury, initial encounter; J44.0 Chronic obstructive pulmonary disease with (acute) lower respiratory infection; I25.10 Atherosclerotic heart disease of native coronary artery without angina pectoris; F41.1 Generalized anxiety disorder; M54.9 Dorsalgia, unspecified; I12.9 Hypertensive chronic kidney disease with stage 1 through stage 4 chronic kidney disease, or unspecified chronic kidney disease; E11.65 Type 2 diabetes mellitus with hyperglycemia; N18.3 Chronic kidney disease, stage 3 (moderate); G89.29 Other chronic pain; J44.9 Chronic obstructive pulmonary disease, unspecified; Z66 Do not resuscitate; Z51.5 Encounter for palliative care; J20.9 Acute bronchitis, unspecified; E11.649 Type 2 diabetes mellitus with hypoglycemia without coma; E11.42 Type 2 diabetes mellitus with diabetic polyneuropathy; E87.5 Hyperkalemia; E78.5 Hyperlipidemia, unspecified; G40.A09 Absence epileptic syndrome, not intractable, without status epilepticus; Z96.642 Presence of left artificial hip joint; R65.20 Severe sepsis without septic shock; X58.XXXA Exposure to other specified factors, initial encounter; Y93.89 Activity, other specified; Z86.73 Personal history of transient ischemic attack (TIA), and cerebral infarction without residual deficits; Y99.8 Other external cause status; Z95.1 Presence of aortocoronary bypass graft; Z79.4 Long term (current) use of insulin; Z88.0 Allergy status to penicillin; Z88.2 Allergy status to sulfonamides; Z91.040 Latex allergy status; Z87.01 Personal history of pneumonia (recurrent); Z87.440 Personal history of urinary (tract) infections; Z90.49 Acquired absence of other specified parts of digestive tract; Z90.710 Acquired absence of both cervix and uterus; Z98.1 Arthrodesis status; Z87.891 Personal history of nicotine dependence; Z83.3 Family history of diabetes mellitus; Z82.49 Family history of ischemic heart disease and other diseases of the circulatory system; Z80.8 Family history of malignant neoplasm of other organs or systems; Y92.128 Other place in nursing home as the place of occurrence of the external cause; Z79.899 Other long term (current) drug therapy; Z79.02 Long term (current) use of antithrombotics/antiplatelets

== ENCOUNTER 2019-07-30 21:09 | Inpatient (IN) | payer OTHER ==
[~2019-07-30] VITALS: Ht 162.6 cm; Wt 60.0 kg
[~2019-07-30 21:09] MED LIST changes: +APAP325 MG PO; +BASAG SOL SQ; +DITROPAN XL5 MG PO; +FLAGYL500 MG PO; +GRALISE300 M1 PO; +LEVAQUIN500 M2 PO; +LYRICA50 M1 PO; +MELATONIN3 MG PO; +MOM30 M1 PO; +NOVOLOG100 UNIT/1 SQ; +OMEPRAZOLE D/R20 MG PO; +TRAMADOL HCL50 MG PO; +[UNRECOGNIZED DRUG - OTHER] PO
[2019-07-30 21:14] VITALS: BP 141/78
--- NOTE | 2019-07-30 22:12 | NUR ---
PATIENT AWAKE, ALERT, ORIENTED X4 AT THIS TIME. FAMILY AT THE BEDSIDE. PER FAMILY PATIENT HAS HAD WEAKNESS AND CONFUSION FOR A COUPLE WEEKS NOW. PER FAMILY PATIENT HAS RECENTLY BEEN ON ANTIBIOTICS FOR UTI RECENTLY.
[2019-07-30 22:51] LABS: BILIRUBIN NEGATIVE (NEGATIVE); BLOOD TRACE-INTACT (NEGATIVE); CLARITY CLOUDY (CLEAR); COLOR YELLOW (YELLOW); GLUCOSE 3+ (NEGATIVE); KETONE NEGATIVE (NEGATIVE); LEUKO ESTERASE 2+ (NEGATIVE); NITRITE POSITIVE (NEGATIVE); PH 5.5 (5.0-9.0); UROBILINOGEN 0.2 E.U./dl (0.2-1.0)
[2019-07-30 22:53] LABS: HEMATOCRIT 35.6 % (37.0-47.0); HEMOGLOBIN 11.3 g/dl (12.0-16.0); MEAN CELL VOLUME 89.7 fl (81.0-99.0); MEAN CORPUSCULAR HGB 28.5 pg (27.0-31.0); MEAN CORPUSCULAR HGB CONC 31.7 g/dl (33.0-37.0); MEAN PLATELET VOLUME 9.7 fl (9.6-12.3); PLATELET COUNT AUTOMATED 435 10*3/uL (130-400); RED BLOOD COUNT 3.97 10*6/uL (4.10-5.10); RED CELL DISTRI WIDTH 14.3 % (0-14.5); WHITE BLOOD COUNT 9.4 10*3/uL (4.8-10.8)
[2019-07-30 23:11] LABS: ALBUMIN 2.6 gm/dl (3.1-4.5); CREATININE 1.32 mg/dL (0.55-1.02); POTASSIUM 4.8 mmol/L (3.5-5.1); TOTAL PROTEIN 6.5 gm/dL (6.4-8.2)
[2019-07-30 23:12] VITALS: BP 138/84
[2019-07-30 23:26] LABS: TOTAL CELLS COUNTED 100 #CELLS
[2019-07-30 23:28] LABS: PLATELET SUFFICIENCY HIGH (NORMAL)
[2019-07-30 23:33] LABS: BACTERIA 2+; WBC 31-40 wbc/hpf (0-5); YEAST 1+
[2019-07-31 01:40] VITALS: BP 124/75
--- NOTE | 2019-07-31 01:40 | NUR ---
Time: 139 A 78 year old F admitted to 5E under services of LAAL ORDAZ DO. Pt. arrived via stretcher from ER. Chief complaint: CHANGE IN MENTAL STATUS. Neurological: awake, alert, oriented to person and place Respiratory: easy, regular,no distress: 2L via nc Breath sounds: diminished, crackles, exp wheeze t/o Cough: dry occasional Cardiovascular: no problem: hrr, denies cp/pressure, no edema, ppp Gastrointestinal: Normoactive x4 quads, denies n/v/d/c, abd soft, nontender, nondistended Genito/Urinary: incontinent Musculoskeketal: 3 wounds to coccyx #1 2cm x 1.3cm x <0.1cm, #2 2cm x 1.7cm x <0.1cm #3 red and blanchable MARVA GOMEZ
[2019-07-31] MEDS ORDERED: STRESS B WITH1 EACH PO (02:20)
[2019-07-31] MEDS ORDERED: PREDNISONE50 MG PO (02:21)
[2019-07-31 06:28] LABS: BASO % 0.2 % (0.0-1.0); HEMATOCRIT 36.7 % (37.0-47.0); HEMOGLOBIN 11.5 g/dl (12.0-16.0); LYMPH # 1.4 10*3/uL (1.3-4.4); LYMPH % 14.5 % (27.0-41.0); MEAN CELL VOLUME 91.5 fl (81.0-99.0); MEAN CORPUSCULAR HGB 28.7 pg (27.0-31.0); MEAN CORPUSCULAR HGB CONC 31.3 g/dl (33.0-37.0); MEAN PLATELET VOLUME 9.7 fl (9.6-12.3); MONO # 0.4 10*3/uL (0.1-1.0); MONO % 4.3 % (3.0-9.0); NEUT # 7.8 10*3/uL (2.3-7.9); NEUT % 80.3 % (47.0-73.0); PLATELET COUNT AUTOMATED 424 10*3/uL (130-400); RED BLOOD COUNT 4.01 10*6/uL (4.10-5.10); RED CELL DISTRI WIDTH 14.5 % (0-14.5); WHITE BLOOD COUNT 9.8 10*3/uL (4.8-10.8)
--- NOTE | 2019-07-31 06:35 | NUR ---
DR. FERRARO CONTACTED AT THIS TIME REGARDING WOUND CARE ORDERS.
[2019-07-31 06:56] LABS: ALBUMIN 2.5 gm/dl (3.1-4.5); CREATININE 1.23 mg/dL (0.55-1.02); POTASSIUM 4.8 mmol/L (3.5-5.1); TOTAL PROTEIN 6.4 gm/dL (6.4-8.2)
--- NOTE | 2019-07-31 07:01 | NUR ---
CONTACTED DR. RONAN STOVER OF BLOOD GLUCOSE OF 485. INSTRUCTED TO GIVE A TOTAL OF 22 UNITS.
[2019-07-31 08:00] VITALS: BP 134/77
--- NOTE | 2019-07-31 09:13 | NUR ---
PHYSICAL THERAPY Nursing screen received and chart reviewed. Please order PT evaluation when medically appropriate. Thank you. Farzana Mon,PT,DPT.
--- NOTE | 2019-07-31 09:54 | NUR ---
NEO CHRISTENSENELECherelle Francois [id number] Please refer to the physician's history and physical for past medical history, comorbid conditions, and allergies. Diagnosis: UTI HYPERGLYCEMIA CHANGE IN MENTAL STATUS Michael Score: 15,AT RISK WOUND DESCRIPTIONS: Wound Number: 1 Location of the wound: coccyx ( left buttocks) Type of wound: stage 3 Thickness: Full Size: 3.0cm x 1.0cm x 0.1cm Tunneling: none Undermining: none Sinus Tract: none Presence of Exudate: none Amount: None Color: Red, yellow Odor: None Periwound Skin Appearance: Normal Wound edges: approximated Pain (associated with wound): none at time of assessment How does patient state this happened? pt unable to state how this happened Wound Number: 2 Location of the wound: right buttocks Type of wound: unstageable Thickness: Full Size: 1.7cm x 0.9cm x <0.1cm Tunneling: none Undermining: none Sinus Tract: none Presence of Exudate: none Amount: None Color: Brown, yellow, red Odor: None Periwound Skin Appearance: Erythema Wound edges: approximated Pain (associated with wound): none at time of assessment How does patient state this happened? pt unable to state how this happened Right buttocks is red and blanchable. No open areas at time of assessment. No drainage at time of assessment. Intact scab noted to left forearm. No drainage noted at time of assessment. Scar tissue noted to left and right arm. Surface the patient is resting on: Isoflex SKIN PREVENTION RECOMMENDATION: 1. Pressure redistribution support surface as appropriate 2. Elevate heels 3. Remove boots/TEDS every shift and reapply 4. Head of bed 30 degrees as tolerated 5. Assess nutrition and hydration 6. Manage moisture 7. Avoid the use of containment devices while in bed 8. Use absorptive products on surfaces limit layers of linens on bed 9. Turn and reposition every 1-2 hours in bed and every 1 hour in chair as tolerated 10. Weight shifts every 15 minutes while up in chair 11. Offloading with pillows or device to keep heels elevated off bed 12. Monitor skin at least every shift 13. Inspect under medical devices twice a day WOUND TREATMENT RECOMMENDATIONS: Wheelchair cushion when oob. Full thickness guidelines: Cleanse right and left buttocks with nss and apply sureprep around the wound therahoney to wound bed and apply optifoam gentle. Heel raiser pro boots while in bed.
--- NOTE | 2019-07-31 11:59 | NUR ---
PT IS [facility] CARE AT [facility] AND WILL RETURN ON DISCHARGE WHEN MEDICALLY STABLE. WILL CONTINUE TO FOLLOW.
--- NOTE | 2019-07-31 13:31 | NUR ---
SPEECH PATHOLOGY Nursing screen completed. Patient is known from prior dysphagia therapy. This dept. will be available for consult as needed. JENNIFER SEXTON MSCCC-TURNSTILE COLLECTOR
--- NOTE | 2019-07-31 15:18 | NUR ---
Nursing screen received and chart reviewed. Patient admitted from LTC with change in mental status and r/o UTI. Prior level include independent w/c mobility at [facility]. If patient should have a decline in ADLs or safety in functional mobility then refer to OT. Thank you. Elizabeth Rodriguez OTR/L
--- NOTE | 2019-07-31 15:29 | NUR ---
24 HR chart check completed.
[2019-07-31 16:00] VITALS: BP 127/65
[2019-07-31 20:00] VITALS: BP 143/84
[2019-08-01] VITALS: BP 133/87
[2019-08-01 09:41] LABS: BASO # 0.1 10*3/uL (0.0-0.1); BASO % 0.9 % (0.0-1.0); EOS # 0.6 10*3/uL (0.0-0.4); EOS % 4.9 % (1.0-4.0); HEMATOCRIT 34.9 % (37.0-47.0); HEMOGLOBIN 11.1 g/dl (12.0-16.0); LYMPH # 3.1 10*3/uL (1.3-4.4); LYMPH % 25.6 % (27.0-41.0); MEAN CELL VOLUME 90.6 fl (81.0-99.0); MEAN CORPUSCULAR HGB 28.8 pg (27.0-31.0); MEAN CORPUSCULAR HGB CONC 31.8 g/dl (33.0-37.0); MEAN PLATELET VOLUME 9.3 fl (9.6-12.3); MONO # 0.8 10*3/uL (0.1-1.0); MONO % 6.5 % (3.0-9.0); NEUT # 7.6 10*3/uL (2.3-7.9); NEUT % 61.8 % (47.0-73.0); PLATELET COUNT AUTOMATED 415 10*3/uL (130-400); RED BLOOD COUNT 3.85 10*6/uL (4.10-5.10); RED CELL DISTRI WIDTH 14.9 % (0-14.5); WHITE BLOOD COUNT 12.3 10*3/uL (4.8-10.8)
[2019-08-01 09:55] LABS: ALBUMIN 2.5 gm/dl (3.1-4.5); ALKALINE PHOSPHATASE 104 U/L (45-117); BUN 11 mg/dl (7-24); CHLORIDE 114 mmol/L (98-107); CREATININE 0.91 mg/dL (0.55-1.02); POTASSIUM 3.8 mmol/L (3.5-5.1); SGOT/AST 25 IU/L (3-35); SGPT/ALT 18 U/L (12-78); SODIUM 144 mmol/L (136-145); TOTAL PROTEIN 5.9 gm/dL (6.4-8.2)
--- NOTE | 2019-08-01 10:15 | NUR ---
Vicky BRIONES notified of wound care recommendations.
[2019-08-01 12:00] VITALS: BP 142/66
--- NOTE | 2019-08-01 12:39 | NUR ---
PT IS RETIREMENT CARE AT [facility] AND WILL RETURN ON DISCHARGE.
--- NOTE | 2019-08-01 12:53 | NUR ---
SPEECH PATHOLOGY Clinical swallowing evaluation completed as per orders due to aspiration. Patient was admitted from [facility] following a change in mental status. Pertinent medical history includes CVA, HTN, COPD, seizures, frequent UTI. Patient is known to this dept. from prior services. She underwent a MBS 05/24/19 which revealed silent aspiration with thin liquid. She was recommended nectar thick liquids and use of chin tuck maneuver with liquids. At current time patient is ordered a regular diet and thin liquids. During assessment she was alert and cooperative and was educated on results of past MBS study. She was aware of the results, and when it was mentioned that she had been recommended nectar thick liquids in the past, she immediately stated that she does not want her liquids thickened and will not drink them that way. Family members were present and confirmed this, stating that she was refusing to drink her liquids thickened. During assessment, she was noted to cough post swallow with thin liquids, but when using a chin tuck, no cough was displayed. With solid, slow mastication was observed, likely due to ill fitting denture. She stated that she has gotten new dentures and is waiting for them to arrive. Recommend patient remain on regular diet and thin liquids, as she refuses nectar thick liquid. Recommend chin tuck with liquids. Recommend she order soft foods that are easier to chew, and use safe swallow precautions such as upright positioning, small bites/sips, chewing thoroughly and alternating liquid and solid. Patient was educated on aspiration risk with thin liquid. Patient stated understanding and reported that she will continue to use a chin tuck but will not allow thickener in her liquid. Follow up therapy is recommended short term for education and adherence to safety precautions. Refer to report in [facility] for further information. Thank you for this referral. JENNIFER SEXTON MSCCC-SFDC CONSULTANT
--- NOTE | 2019-08-01 14:03 | NUR ---
STEPHAN spoke with Alexandra Bhatt who stated she would retro the PRECERT once patient is discharged back to their facility. -STEPHAN Rizvi
--- NOTE | 2019-08-01 14:06 | NUR ---
PHYSICAL THERAPY Physical therapy evaluation attemtped. Patient eating lunch at this time. Will attempt PT evaluation at a later date. Thank you. Farzana Mon,PT,DPT
--- NOTE | 2019-08-01 14:08 | NUR ---
Patient in bed and nursing feeding patient lunch. Elizabeth Rodriguez OTR/L
[2019-08-01 16:00] VITALS: BP 144/64
--- NOTE | 2019-08-01 16:00 | NUR ---
MEDICATED WITH PRN PO TYLENOL FOR C/O ABDOMINAL PAIN RADIATING DOWN RIGHT LEG RATES 7/10 ON PAIN SCALE.
--- NOTE | 2019-08-01 16:47 | NUR ---
PRN PO TYLENOL EFFECTIVE; PATIENT RESTING W/NO S/S PAIN.
[2019-08-01 20:00] VITALS: BP 149/77
--- NOTE | 2019-08-01 20:27 | NUR ---
PATIENT IS RESTING IN BED WITH EASY AND REGULAR RESPERS ON 1L VIA NC. ASSESSMENT IS COMPLETE WITH NO C/O OR S/S OF DISTRESS NOTED AT THIS TIME. BED IS LOW, LOCKED, ALARMED, AND CALL LIGHT IS WITHIN REACH. WILL CONTINUE TO MONITOR, SEE SHIFT ASSESSMENT.
--- NOTE | 2019-08-01 21:00 | NUR ---
BEDSIDE GLUCOSE 433.
--- NOTE | 2019-08-01 23:00 | NUR ---
BLOOD GLUCOSE 379, REFLEX ORDERED.
[2019-08-02] VITALS: BP 145/78
--- NOTE | 2019-08-02 00:03 | NUR ---
ATTEMPTED TO REACH RESIDENT KILN REPAIRER REGARDING PATIENT BLOOD GLUCOSE. WILL ATTEMPT AGAIN.
--- NOTE | 2019-08-02 00:08 | NUR ---
SPOKE WITH DR. BANKS REGARDING GLUCOSE REFLEX OF 370, ORDERED TO FOLLOW SLIDING SCALE, CHECK BLOOD SUGAR IN 2 HOURS, AND CHANGE DIET.
--- NOTE | 2019-08-02 02:00 | NUR ---
BLOOD GLUCOSE 269.
--- NOTE | 2019-08-02 05:39 | NUR ---
Upon discharge recommend patient to follow up for wound care in outpatient setting continue current wound care orders at discharging facility.
[2019-08-02 08:00] VITALS: BP 144/93
[2019-08-02 12:00] VITALS: BP 144/99
--- NOTE | 2019-08-02 12:02 | NUR ---
PT IS GROUP HOME CARE AT [facility] AND WILL RETURN WHEN MEDICALLY STABLE.
--- NOTE | 2019-08-02 12:30 | NUR ---
SPEECH PATHOLOGY Patient was seen this pm for treatment. She was alert and cooperative, visiting with her daughter. Patient reported that she ate a late breakfast and did not wish to eat or drink anything at this time. Safe swallow precautions were reinforced. Patient was able to recall all precautions and stated that she has been implementing them. She stated that she has been having no trouble with food or liquid. Education was provided regarding silent aspiration, on how it occurs and methods to try to prevent it. Patient and daughter's questions were answered to their satisfaction and they verbalized understanding of information provided. As patient/family have been educated, demonstrate understanding and safety precautions are being utilized, recommend discharge of speech pathology services at this time. Thank you for this referral. It has been a pleasure taking part in this patient's care. JENNIFER SEXTON MSCCC-SAT INSTRUCTOR
--- NOTE | 2019-08-02 12:40 | NUR ---
12:25 PT REFUSED DA AT THIS TIME. RESPS REGUALR AND UNLABORED. SPO2 100 ON 1 L NC.
--- NOTE | 2019-08-02 14:10 | NUR ---
RN MANAGED CARE faxed updates to [facility]. -STEPHAN Rizvi
[2019-08-02 16:00] VITALS: BP 143/86
--- NOTE | 2019-08-02 17:26 | NUR ---
PTS HR FOUND TO BE 128 BPM. RECTAL TEMP 99.8. TYLENOL GIVEN AT THIS TIME.
[2019-08-02 20:00] VITALS: BP 107/74
[2019-08-03] VITALS: BP 112/76
[2019-08-03 08:00] VITALS: BP 155/95
--- NOTE | 2019-08-03 10:00 | NUR ---
Plan to discharge to LTC to [facility] today. Elizabeth Rodriguez OTR/l
--- NOTE | 2019-08-03 10:00 | NUR ---
PHYSICAL THERAPY Plan to discharge to [facility] this date. Thank you. Farzana Mon,PT,DPT
--- NOTE | 2019-08-03 10:49 | NUR ---
JIRA DEVELOPER notified of patient discharge. JIRA DEVELOPER spoke with ROSY Shrestha. JIRA DEVELOPER spoke with [facility] and scheduled a 2pm pickup for the patient to be transported back to the [facility]. JIRA DEVELOPER attempted to reach out to Cindy Martinez, number is disconnected. JIRA DEVELOPER reached Marito Martinez, he is aware of patients discharge. JIRA DEVELOPER will fax demographics to [facility]. 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 Sofia with [facility] is aware of patient returning. -STEPHAN Rizvi
[2019-08-03 12:00] VITALS: BP 158/92
--- NOTE | 2019-08-03 12:17 | NUR ---
PT IS [facility] CARE AT [facility] AND WILL RETURN WHEN MEDICALLY STABLE. WILL CONTINUE TO FOLLOW.
[2019-08-03 16:00] VITALS: BP 137/99; BP 160/88
--- NOTE | 2019-08-03 16:39 | NUR ---
PT REFUSED DC WOUND PHOTOS
--- NOTE | 2019-08-03 18:41 | NUR ---
ATTEMPTED TO CALL VO TO GIVE REPORT . PHONES KEPT RINGING BUSY WHEN PHONE NUMBER DIALED
--- NOTE | 2019-08-03 19:55 | NUR ---
VANCE VOGEL HERE TO PICK PATIENT UP TO TAKE TO RESIDENTIAL
--- NOTE | 2019-08-03 20:02 | NUR ---
PATIENT WITH [facility] TO [facility] [place]. ASKED EMT'S TO ASK NURSE TO CALL THE HOSPITAL FOR A NURSE TO NURSE
--- NOTE | 2019-08-03 20:37 | NUR ---
REPORT CALLED TO RANJEET AT [facility]
== END 2019-08-03 20:02 | disposition other institution (70) | DRG 689 ==
LOC: ED 21:09 → EDHOLD 23:59 → 5E 23:59
PROVIDERS: Emergency Medicine Emergency Medical Services; Registered Nurse; Student in an Organized Health Care Education/Training Program; ADMIT Internal Medicine
DX: N39.0 Urinary tract infection, site not specified (principal); G93.41 Metabolic encephalopathy; E43 Unspecified severe protein-calorie malnutrition; E78.5 Hyperlipidemia, unspecified; I25.10 Atherosclerotic heart disease of native coronary artery without angina pectoris; J44.9 Chronic obstructive pulmonary disease, unspecified; R73.9 Hyperglycemia, unspecified; Z96.642 Presence of left artificial hip joint; N18.3 Chronic kidney disease, stage 3 (moderate); Z86.19 Personal history of other infectious and parasitic diseases; F41.1 Generalized anxiety disorder; Z88.2 Allergy status to sulfonamides; Z88.0 Allergy status to penicillin; Z88.8 Allergy status to other drugs, medicaments and biological substances; Z91.040 Latex allergy status; Z95.1 Presence of aortocoronary bypass graft; Z87.891 Personal history of nicotine dependence; Z90.710 Acquired absence of both cervix and uterus; Z79.51 Long term (current) use of inhaled steroids; Z79.1 Long term (current) use of non-steroidal anti-inflammatories (NSAID); Z79.899 Other long term (current) drug therapy; Z79.4 Long term (current) use of insulin; Z68.21 Body mass index [BMI] 21.0-21.9, adult